=== PATIENT | female | born 1990 | race Caucasian/White ===

== ENCOUNTER 2022-06-03 07:48 | Emergency (ER) | payer BC, SELFPAY ==
[2022-06-03 07:55] VITALS: BP 94/60; PULSE 76; RESP 18; TEMP 36.5; O2SAT 100
[2022-06-03 08:17] LABS: Basophils Percent Auto 0.2 % (0.2-1.2); Eosinophils Absolute Auto 0.1 K/mm3 (0-0.3); Eosinophils Percent Auto 0.6 % (0-4.4); Hematocrit 39.3 % (37.0-47.0); Hemoglobin 13.6 g/dL (12.0-15.0); Immature Granulocyte Absolute 0.03 K/mm3 (0.00-0.031); Immature Granulocyte Percent A 0.3 % (0-0.5); Lymphocytes Absolute Auto 1.53 K/mm3 (0.9-3.2); Lymphocytes Percent Auto 17.5 % (18.3-44.2); Mean Corpuscular HGB Conc 34.6 g/dl (32-36); Mean Corpuscular Hemoglobin 30.4 pg (26-34); Mean Corpuscular Volume 87.7 fl (80-100); Mean Platelet Volume 9.9 fl (7.4-10.4); Monocytes Absolute Auto 0.4 K/mm3 (0.1-0.6); Monocytes Percent Auto 4.6 % (2.6-8.5); Neutrophils Absolute Auto 6.7 K/mm3 (1.3-6.7); Neutrophils Percent Auto 76.8 % (45.5-73.1); Platelet Count Result 265 k/mm3 (150-375); Red Blood Count 4.48 M/mm3 (4.2-5.4); Red Cell Distribution Width 13.1 % (11.5-14.5); White Blood Count 8.8 K/mm3 (4.5-10.0)
[2022-06-03 08:26] LABS: Alanine Aminotransferase 17 U/L (6-35); Alkaline Phosphatase 69 U/L (38-126); Anion Gap 7 mmol/L (8-16); Aspartate Amino Transferase 25 U/L (14-36); Bilirubin,Total 0.6 mg/dL (0.2-1.3); Blood Urea Nitrogen 8 mg/dL (7-17); Calcium 8.5 mg/dL (8.4-10.2); Carbon Dioxide 21 mmol/L (22-30); Chloride 104 mmol/L (98-107); Estimated Glomerular Filt Rate > 60; Glucose 121 mg/dL (65-110); Lipase 11 U/L (23-300); Potassium 3.5 mmol/L (3.4-5.0); Sodium 132 mmol/L (137-145)
[2022-06-03 08:33] LABS: Bacteria Urine Trace /hpf; Mucus Urine Rare /lpf; Squamous Epithelial Cell Urine Many /hpf (Few)
[2022-06-03 08:44] LABS: Add Urine Microscopic? YES; Appearance Urine Cloudy (Clear); Bilirubin Urine Negative (Negative); Blood Urine Negative (Negative); Color Urine Yellow (Yellow); Glucose Urine UA Negative (Negative); Ketones Urine 1+ mg/dL (Negative); Leukocyte Esterase Ur Trace LEU/UL (Negative); Nitrate Urine Negative (Negative); Protein Urine Negative (Negative); Specific Grav Ur 1.023 (1.001-1.035); Urobilinogen Urine Negative mg/dL (<2.0)
[2022-06-03] MEDS: FAMOTIDINE 20 MG/2 ML VIAL IV PUSH (08:51)
[2022-06-03] MEDS: ONDANSETRON INJ 4 MG/2 ML VIAL IV PUSH (08:51)
[2022-06-03] MEDS: SODIUM CHLORIDE 0.9% IV 1,000 ML 999 ML IV CONT ×2 (08:51→09:35)
--- NOTE | 2022-06-03 08:54 | ED.NAVMDI ---
HPI - Nausea/Vomiting/Diarrhea General Chief complaint: Nausea/Vomiting/Diarrhea Stated complaint: COVID+ 05/24 N/V 16WKS PREG Time Seen by Provider: 06/03/22 07:58 Source: RN notes reviewed History of Present Illness HPI Narrative: Patient presents emergency room from home for nausea vomiting. Patient has nausea began 2 days ago. States she is had numerous episodes of emesis since been unable to keep anything down. The patient states she is approximately 16 weeks and is followed by [facility] at [facility] states she has had a ultrasound showing a live intrauterine she denies any abdominal pain she denies any vaginal bleeding states that she did have COVID on 05/24/2022 and states she had felt like she recovered from it prior to having these episodes of nausea and vomiting she states she has had no diarrhea Related Data Home Medications Medication Instructions Recorded Confirmed vits 75-iron 28 mg-folic pkg PO 06/03/22 acid 800 mcg-omega3 440 mg oral pack Allergies Allergy/AdvReac Type Severity Reaction Status Date / Time No Known Allergies Allergy Verified 06/03/22 07:59 Review of Systems Review of Systems: Gen.: Denies fevers or chills ENT: Denies congestion Respiratory: Denies shortness of breath or cough CV: Denies chest pain or palpitations GI: see HPI reports Musculoskeletal: Denies back pain or muscle pain Neuro: Denies numbness, tingling, weakness or focal weakness Skin: Denies rash Except as documented, all other systems reviewed and negative [facility] Past Medical History Medical History (Updated 06/03/22 @ 11:35 by José Marquez DO) Patient denies significant medical history Social History Social History (Updated 06/03/22 @ 08:55 by José Marquez DO) Smoking status: Never smoker Exam Narrative: APPEARANCE: No acute distress, nontoxic, resting in bed EYES: EOMI HEENT: Normocephalic, atraumatic, OMM RESPIRATORY: No respiratory distress Clear to auscultation bilaterally with no rhonchi wheezing or rales. CARDIOVASCULAR: Regular rate and rhythm without murmurs rubs or gallops. ABDOMINAL: Soft, nontender, nondistended, no rebound or guarding MUSCULOSKELETAl: Moves all extremities. No clubbing, cyanosis or edema. NEURO: Awake and alert. Following commands, speech normal, no focal deficits SKIN:: Warm, dry. No rashes lesions or abrasions PSYCHIATRIC: Normal affect/mood, Course Course Emergency Course: Patient states he is feeling much better at this time able to eat and drink in ED with no emesis Discussed with patient results of workup and diagnosis. Discussed need for follow-up with primary care, proper use of medication, and reasons to return to the emergency department. Patient understands and agrees to current treatment plan Vital Signs Vital signs: Vital Signs Temperature 97.7 F 06/03/22 07:55 Pulse Rate 76 06/03/22 07:55 Respiratory Rate 18 06/03/22 07:55 Blood Pressure 94/60 L 06/03/22 07:55 Pulse Oximetry 100 06/03/22 07:55 Temperature 97.7 F 06/03/22 07:55 Pulse Rate 76 06/03/22 07:55 Respiratory Rate 18 06/03/22 07:55 Blood Pressure 94/60 L 06/03/22 07:55 Pulse Oximetry 100 06/03/22 07:55 MDM - Nausea/Vomiting/Diarrhea Lab Data Result diagrams: 06/03/22 08:09 06/03/22 08:09 Labs: Lab Results 06/03/22 06/03/22 06/03/22 Range/Units 08:09 08:09 08:15 WBC 8.8 (4.5-10.0) K/mm3 RBC 4.48 (4.2-5.4) M/mm3 Hgb 13.6 (12.0-15.0) g/dL Hct 39.3 (37.0-47.0) % MCV 87.7 (80-100) fl MCH 30.4 (26-34) pg MCHC 34.6 (32-36) g/dl RDW 13.1 (11.5-14.5) % Plt Count 265 (150-375) k/mm3 MPV 9.9 (7.4-10.4) fl Immature Gran % (Auto) 0.3 (0-0.5) % Neut % (Auto) 76.8 H (45.5-73.1) % Lymph % (Auto) 17.5 L (18.3-44.2) % [place] % (Auto) 4.6 (2.6-8.5) % Eos % (Auto) 0.6 (0-4.4) % Baso % (Auto
[2022-06-03 11:33] VITALS: BP 112/73; PULSE 76; RESP 18; O2SAT 98
[2022-06-03] MEDS: CEPHALEXIN 500 MG CAPSULE PO (11:38)
== END 2022-06-03 12:00 | disposition home or self-care (01) ==
PROVIDERS: Emergency Provider Emergency Medicine
DX: O21.0 Mild hyperemesis gravidarum (principal); Z3A.16 16 weeks gestation of pregnancy; O23.42 Unspecified infection of urinary tract in pregnancy, second trimester; N39.0 Urinary tract infection, site not specified
CPT/HCPCS: 36415; 80053; 81001; 83690; 85025; 96361; 96374; 96375; 99284; A9270; J2405; J7030

== ENCOUNTER 2022-06-13 18:26 | Emergency (ER) | payer BC, SELFPAY ==
[2022-06-13 18:50] VITALS: BP 113/57; PULSE 83; RESP 14; TEMP 36.6; O2SAT 100
[2022-06-13 19:30] LABS: Add Urine Microscopic? NO; Appearance Urine Clear (Clear); Bilirubin Urine Negative (Negative); Blood Urine Negative (Negative); Color Urine Yellow (Yellow); Glucose Urine UA Negative (Negative); Ketones Urine Negative (Negative); Leukocyte Esterase Ur Negative LEU/UL (Negative); Nitrate Urine Negative (Negative); Protein Urine Negative (Negative); Specific Grav Ur 1.018 (1.001-1.035); Urobilinogen Urine Negative mg/dL (<2.0)
--- NOTE | 2022-06-13 19:53 | ED.FEMALEGU ---
HPI - Female Genitourinary General Chief complaint: Urogenital-Female Stated complaint: UTI? Time Seen by Provider: 06/13/22 19:01 History of Present Illness HPI Narrative: This is a 32-year-old female at approximately 17 weeks , return to the emergency department complaining of dysuria. She states she was seen in the emergency department about a week ago, diagnosed with a UTI, started on antibiotics but is only now having urinary symptoms. Denies flank pain, fevers, abdominal pain, cramping, vaginal bleeding. She states she completed her course of antibiotics. Related Data Home Medications Medication Instructions Recorded Confirmed vits 75-iron 28 mg-folic pkg PO 06/03/22 acid 800 mcg-omega3 440 mg oral pack Allergies Allergy/AdvReac Type Severity Reaction Status Date / Time No Known Allergies Allergy Verified 06/03/22 07:59 Review of Systems Review of Systems: CONSTITUTIONAL: Denies fever, chills, or sweats. EYES: Denies visual changes, redness, or discharge. ENT: Denies rhinorrhea, congestion, sore throat, or otalgia. CARDIOVASCULAR: Denies chest pain, palpitations, or edema. RESPIRATORY: Denies cough or dyspnea. GASTROINTESTINAL: Denies abdominal pain, nausea, vomiting, or diarrhea. GENITOURINARY: dysuria Denies hematuria. Denies vaginal bleeding SKIN: Denies rash or itching. MUSCULOSKELETAL: Denies back pain, joint pain, or myalgia. NEUROLOGIC: Denies headache, numbness, dizziness, or weakness. PSYCHIATRIC: Denies anxiety or depression. [facility] Past Medical History Medical History (Updated 06/14/22 @ 00:00 by Johanna Dacalin) Patient denies significant medical history Social History Social History Smoking status: Never smoker Exam Narrative: GENERAL: Well-appearing, well-nourished, and in no acute distress. CHEST: Clear to auscultation. No respiratory distress. No wheezes rales or rhonchi HEART: Regular rate and rhythm. No murmur heard. Normal peripheral pulses. ABDOMEN: Soft, nontender, nondistended, normal active bowel sounds. No CVA tenderness to palpation EXTREMITIES: Normal range of motion. No edema. SKIN: Warm, dry, no rash. NEURO: No focal deficits. Alert and oriented x3. PSYCH: Normal mood and affect. Course Course Emergency Course: 19:50 -cultures not available from prior UA. Despite normal-appearing UA in the presence of symptoms and the current patient's current will repeat antibiotic regimen with recommendation to follow-up with the patient's OB. Bedside ultrasound was demonstrates normal heart rate approximately 140s. Discussed return emergency precautions including signs/symptoms of pyelonephritis. Patient voiced understanding and is comfortable plan. All questions answered to her satisfaction. Vital Signs Vital signs: Vital Signs Temperature 97.9 F 06/13/22 18:50 Pulse Rate 83 06/13/22 18:50 Respiratory Rate 14 06/13/22 18:50 Blood Pressure 113/57 L 06/13/22 18:50 Pulse Oximetry 100 06/13/22 18:50 Oxygen Delivery Room Air 06/13/22 18:50 Temperature 97.9 F 06/13/22 18:50 Pulse Rate 83 06/13/22 18:50 Respiratory Rate 14 06/13/22 18:50 Blood Pressure 113/57 L 06/13/22 18:50 Pulse Oximetry 100 06/13/22 18:50 Oxygen Delivery Room Air 06/13/22 18:50 MDM - Female Genitourinary Lab Data Labs: Lab Results 06/13/22 Range/Units 19:04 Urine Color Yellow (Yellow) Urine Appearance Clear (Clear) Urine pH 6.0 (5.0-9.0) Ur Specific [place] 1.018 (1.001-1.035) Urine Protein Negative (Negative) mg/dL Urine Glucose (UA) Negative (Negative) mg/dL Urine Ketones Negative (Negative) mg/dL Ur Blood (Man) Negative (Negative) Urine Nitrate Negative (Negative) Urine Bilirubin Negative (Negative) Urine Urobilinogen Negative (<2.0) mg/dL Leukocyte Esterase Rfl Negative (Negative) ZAN/UL Dis
== END 2022-06-13 20:04 | disposition home or self-care (01) ==
PROVIDERS: Nurse Practitioner Family; Emergency Provider Preventive Medicine Aerospace Medicine
DX: O26.892 Other specified pregnancy related conditions, second trimester (principal); Z3A.17 17 weeks gestation of pregnancy
CPT/HCPCS: 81003; 99283

== ENCOUNTER 2023-03-03 11:31 | Inpatient (IN) | payer BC, SELFPAY ==
[2023-03-03] VITALS (15 sets, daily range): BP systolic 107–156; BP diastolic 56–96; PULSE 78–144; RESP 16–24; TEMP 36.2–38.7; O2SAT 92–100; BMI 22.4
--- NOTE | ~2023-03-03 | XR_ITS ---
EXAMINATION: XR abdomen/kub 1V INDICATION: Ureteral stone TECHNIQUE: Supine view of the abdomen is obtained. COMPARISON: CT from today FINDINGS: There is a 3 mm calcification of the right pelvis likely reflecting the right distal ureter al stone described on CT. There is enlargement of the left kidney with areas of decreased perfusion i s seen and the comparison CT. The bowel gas pattern is normal. The visualized lung bases are clear. IMPRESSION: 1. 3 mm right pelvic calcification likely reflecting the distal right ureteral stone seen on CT. 2. Enlarged right kidney with areas of decreased perfusion, consistent with pyelonephritis. Reviewed, dictated and finalized at location B. IMPRESSION: 1. 3 mm right pelvic calcification likely reflecting the distal right ureteral stone seen on CT. 2. Enlarged right kidney with areas of decreased perfusion, consistent with linda lonephritis.
--- NOTE | ~2023-03-03 | XR_ITS ---
EXAMINATION: XR chest 1V portable INDICATION: Leukocytosis, right-sided flank pain TECHNIQUE: Portable AP chest at 1322 hours COMPARISON: None available FINDINGS: The lungs are free of acute opacities. No pleural effusion or pneumothorax. The cardiomedia stinal silhouette is normal. IMPRESSION: 1. No acute cardiopulmonary abnormality. Reviewed, dictated and finalized at location B.
--- NOTE | ~2023-03-03 | CT_ITS ---
EXAMINATION: CT abdomen pelvis w con INDICATION: Vomiting and back pain TECHNIQUE: Computed tomographic images of the abdomen and pelvis were obtained after the administrati on of 100 cc of Omnipaque 350 intravenous contrast. The dose-length product (DLP) was 165.67 mGy-cm. Automated exposure control and iterative reconstruction technique were employed. COMPARISON: None available FINDINGS: Minimal dependent atelectasis is present in the lung bases. The heart size is normal. The l iver, spleen, pancreas, gallbladder, and adrenal glands are normal. The left kidney is unremarkable. There is a 3 mm stone at the right ureterovesicular junction causing moderate right hydroureteronephr osis. The right kidney is enlarged and demonstrates multiple areas of abnormal decreased perfusion in the left kidney. No pathologically enlarged abdominal or pelvic lymph nodes are identified. No free intraperitoneal gas or evidence of bowel obstruction. IMPRESSION: 1. 3 mm stone at the right ureterovesicular junction causing moderate right hydroureteronephrosis. Mu ltiple areas of abnormally decreased perfusion in the right kidney consistent with superimposed pyelo nephritis and possible small renal abscesses. Urologic evaluation is recommended. Reviewed, dictated and finalized at location B. IMPRESSION: 1. 3 mm stone at the right ureterovesicular junction causing moderate right hyd roureteronephrosis. Multiple areas of abnormally decreased perfusion in the rig ht kidney consistent with superimposed pyelonephritis and possible small renal abscesses. Urologic evaluation is recommended.
--- NOTE | ~2023-03-03 | XR_ITS ---
EXAMINATION: XR retrograde pyelo w/stent RT DATE: 03/03/2023 17:17 INDICATION: Right ureteral stone. TECHNIQUE: 92 intraoperative fluoroscopic views of the abdomen and pelvis were obtained. I was not pr esent. Fluoroscopy exposure time was 44 seconds. COMPARISON: CT abdomen and pelvis 03/03/2023 FINDINGS: The right-sided retrograde pyelogram demonstrates mild right hydronephrosis and hydroureter . The final images demonstrate a right internal ureteral stent in expected position. Contrast in the left-sided renal collecting system from the recent CT demonstrates a normal left ureter. IMPRESSION: 1. Mild right hydronephrosis and hydroureter. Right internal ureteral stent in expected position. Reviewed, dictated and finalized at location E.
[2023-03-03 11:49] LABS: Hematocrit 40.8 % (37.0-47.0); Hemoglobin 13.8 g/dL (12.0-15.0); Mean Corpuscular HGB Conc 33.8 g/dl (32-36); Mean Corpuscular Hemoglobin 27.9 pg (26-34); Mean Corpuscular Volume 82.6 fl (80-100); Mean Platelet Volume 10.5 fl (7.4-10.4); Platelet Count Result 184 k/mm3 (150-375); Red Blood Count 4.94 M/mm3 (4.2-5.4); Red Cell Distribution Width 14.9 % (11.5-14.5); White Blood Count 22.9 K/mm3 (4.5-10.0)
[2023-03-03 11:57] LABS: Alanine Aminotransferase 26 U/L (6-35); Albumin Level 3.9 g/dL (3.5-5.1); Alkaline Phosphatase 150 U/L (38-126); Anion Gap 5 mmol/L (8-16); Aspartate Amino Transferase 28 U/L (14-36); Bilirubin,Total 0.7 mg/dL (0.2-1.3); Blood Urea Nitrogen 18 mg/dL (7-17); Calcium 8.6 mg/dL (8.4-10.2); Carbon Dioxide 31 mmol/L (22-30); Chloride 90 mmol/L (98-107); Estimated Glomerular Filt Rate 44; Glucose 125 mg/dL (65-110); Lipase 16 U/L (23-300); Potassium 3.2 mmol/L (3.4-5.0); Sodium 126 mmol/L (137-145)
[2023-03-03 12:49] LABS: Band Neutrophils Percent 22 % (0-6); Lymphocytes Absolute Manual 0.22 K/mm3 (1.1-4.5); Monocytes Absolute Manual 0.91 K/mm3 (0.1-0.90); Monocytes Percent Manual 4 % (3-9); Neutrophils Absolute Manual 21.75 K/mm3 (1.7-7.2); Neutrophils Percent Manual 73 % (46-73); Total Cells Counted 100
[2023-03-03 12:50] LABS: Platelet Estimate Adequate (Adequate)
[2023-03-03 12:50] LABS: Amorphous Sediment Urine Present; Appearance Urine Turbid (Clear); Bacteria Urine None Seen /hpf; Bilirubin Urine Negative (Negative); Blood Urine 3+ (Negative); Color Urine Yellow (Yellow); Glucose Urine UA Negative (Negative); Ketones Urine Negative (Negative); Leukocyte Esterase Ur Negative LEU/UL (Negative); Nitrate Urine Negative (Negative); Protein Urine 3+ mg/dL (Negative); RBC Urine 0-2 /hpf (0-2); Specific Grav Ur 1.018 (1.001-1.035); Squamous Epithelial Cell Urine Many /hpf (Few); pH Urine 5.5 (5.0-9.0)
[2023-03-03 12:52] LABS: Hypochromasia 1+ (NORMAL)
[2023-03-03 12:53] LABS: Burr Cells 1+ (NORMAL); Schistocytes None Seen (NORMAL)
[2023-03-03 12:57] LABS: Add Urine Microscopic? YES
--- NOTE | 2023-03-03 12:59 | ED.NAVMDI ---
HPI - Nausea/Vomiting/Diarrhea General Chief complaint: Nausea/Vomiting/Diarrhea <Liz Bailey PA-C - Last Filed: 03/03/23 19:13> Stated complaint: nausea/vomiting, back pain <Liz Bailey PA-C - Last Filed: 03/03/23 19:13> Time Seen by Provider: 03/03/23 12:09 <Liz Bailey PA-C - Last Filed: 03/03/23 19:13> History of Present Illness HPI Narrative: 32 y/o F without significant medical history reports for evaluation for body aches, vomiting, right flank pain x2 weeks, worsening over the past 5 days. Her last bowel movement was a few days ago and normal. She reports decreased p.o. intake including fluids. Patient reports multiple episodes of emesis with associated nausea. She reports decreased urinary output which she associates secondary to dehydration. She reports body aches all over including achiness in her neck and a generalized headache. She denies vision changes, focal numbness or weakness. She is ambulatory. She denies known fever, dysuria, hematuria, chest pain or shortness of breath, vaginal discharge or concern for STDs, sore throat or congestion, cough, ear pain. She does report generalized abdominal pain which has subsided. <Liz Bailey PA-C - Last Filed: 03/03/23 19:13> Related Data Home medications: Home Medications Medication Instructions Recorded Confirmed alprazolam 0.5 mg tablet 0.5 mg PO TID 03/03/23 03/03/23 <Liz Bailey PA-C - Last Filed: 03/03/23 19:13> Allergies/Adverse reactions: Allergies Allergy/AdvReac Type Severity Reaction Status Date / Time No Known Allergies Allergy Verified 03/03/23 12:32 <CODY Alexandra Last Filed: 03/03/23 19:13> Review of Systems Review of Systems: CONSTITUTIONAL: Denies fever, chills EYES: Denies visual changes, redness, or discharge. ENT: Denies rhinorrhea, congestion, sore throat, or otalgia. CARDIOVASCULAR: Denies chest pain, palpitations, or edema. RESPIRATORY: Denies cough or dyspnea. GASTROINTESTINAL: See HPI GENITOURINARY: Denies dysuria or hematuria. SKIN: Denies rash or itching. MUSCULOSKELETAL: See HPI NEUROLOGIC: See HPI PSYCHIATRIC: Denies anxiety or depression. <Liz Bailey PA-C - Last Filed: 03/03/23 19:13> [facility] Past Medical History Medical History: Medical History Anxiety Single seizure Tobacco use <Liz Bailey PA-C - Last Filed: 03/03/23 19:13> Social History Social History: Social History (Updated 03/03/23 @ 14:39 by Yolanda Rae PA-C) Social History: Surrogate medical decision maker: Katie Sr, mother. Code status: Full code. Years smoked: 14 Smoking status: Current every day smoker Tobacco type: cigarettes and e-cigarettes/vaping Alcohol intake: never Substance use: never Lack of Transportation: No Lack of Food: Never True Current Housing: I Have Housing Concerned About Future Housing: No Difficulty Paying Gas/Electric Bills: No Difficulty Paying for Meds: No Currently Unemployed: No Education: High School Diploma/GED Difficulty w/ Childcare or Family Care: No Additional living arrangements comments: Lives in [place]. Additional occupation/education comments: [employer]. Spiritual care concerns: No <Liz Bailey PA-C - Last Filed: 03/03/23 19:13> Exam Narrative: GENERAL: Young female resting in exam bed, appears uncomfortable. Nontoxic appearing, in no acute distress. HEAD: Normocephalic EYES: PERRLA ENT: Nares clear. Mucous membranes moist. Oropharynx without tonsillar hypertrophy exudate or other lesions. NECK: Supple. No nuchal rigidity. CHEST: No respiratory distress. Clear to auscultation, no adventitious breath sounds. HEART: Regular rate and rhythm. No murmur heard. Normal peripheral pulses. ABDOMEN: Normal active bowel sounds. Abdomen soft with tenderness in the suprapubic region with guarding. Bilateral CVA tenderness, significantly worse
[2023-03-03 13:00] LABS: Lactic Acid Reflex 1.4 mmol/L (0.7-2.0)
[2023-03-03] MEDS: POTASSIUM CHLORIDE 20 MEQ PACKET (FOR LIQUID) 40 MEQ PO (13:24)
[2023-03-03] MEDS: ONDANSETRON INJ 4 MG/2 ML VIAL IV PUSH (13:25)
[2023-03-03] MEDS: MORPHINE SULFATE (*CRX) 4 MG/ML INJ IV PUSH (13:25)
[2023-03-03] MEDS: SODIUM CHLORIDE 0.9% IV 1,000 ML 999 ML IV CONT ×2 (13:26)
[2023-03-03 13:40] LABS: Influenza A QL RT-PCR Negative (Negative); Influenza B QL RT-PCR Negative (Negative); SARS-CoV-2 RNA PCR Negative (Negative)
--- NOTE | 2023-03-03 14:32 | PM.IMHP ---
H&P: HPI History of Present Illness Date/Time: 03/03/23 15:00 Chief Complaint: Nausea, vomiting, back pain. Narrative: This is a 32-year-old female without significant medical history presented to the emergency department via private vehicle from home for evaluation of nausea, vomiting, and back pain. The patient provides the following history. She reports intermittent right flank pain which she describes as aching but occasionally sharp and shooting in nature. The pain does not radiate and she has not noticed any significant aggravating or alleviating factors. She has been taking ibuprofen occasionally but not frequently. Over the past 2 weeks however the last 3 to 5 days she started to feel unwell with nausea and vomiting. She now has headaches and body aches and she feels as though she is getting dehydrated as she has noticed a decreased in urine output. She has not taken her temperature but reports subjective fevers. Last week she had dysuria but that has since resolved. No sinus congestion, sore throat, cough, or diarrhea. She was afebrile on arrival to the emergency department with stable vital signs. Labs were significant for a WBC count of 22.9 (22% bands), sodium 126, potassium 3.2, chloride 90, carbon dioxide 31, BUN 18, creatinine 1.40, lactic acid 1.4. Urine was turbid with 3+ protein, 3+ blood, 11 to 20 WBC, and many squamous cells. She tested negative for influenza and COVID. CT of the abdomen and pelvis showed a 3 mm stone at the right UVJ causing moderate right hydroureteronephrosis and multiple areas of abnormally decreased perfusion the right kidney consistent with superimposed pyelonephritis and possible small renal abscesses. Urology was consulted and they will be taking her to the OR for cystoscopy today. She received a 2 L bolus of fluid in the ED and was started on ceftriaxone and she is being admitted in this setting. At the time my evaluation she has no complaints aside from what is listed above. Review of Systems Review of Systems: Twelve systems were reviewed and are negative except for as per HPI. [facility] Past Medical History Medical History Anxiety Single seizure Tobacco use Social History Social History (Updated 03/03/23 @ 14:39 by Yolanda Rae PA-C) Social History: Surrogate medical decision maker: Katie rS, mother. Code status: Full code. Years smoked: 14 Smoking status: Current every day smoker Tobacco type: cigarettes and e-cigarettes/vaping Alcohol intake: never Substance use: never Lack of Transportation: No Lack of Food: Never True Current Housing: I Have Housing Concerned About Future Housing: No Difficulty Paying Gas/Electric Bills: No Difficulty Paying for Meds: No Currently Unemployed: No Education: High School Diploma/GED Difficulty w/ Childcare or Family Care: No Additional living arrangements comments: Lives in [place]. Additional occupation/education comments: [employer]. Spiritual care concerns: No Meds Home Medications and Allergies Home Medications Medication Instructions Recorded Confirmed Type alprazolam 0.5 mg tablet 0.5 mg PO TID 03/03/23 03/03/23 History vortioxetine 10 mg tablet 10 mg PO DAILY 03/03/23 03/03/23 History (Trintellix) Allergies Allergy/AdvReac Type Severity Reaction Status Date / Time No Known Allergies Allergy Verified 03/03/23 12:32 Vital Signs Vital Signs - 24 hr 03/03/23 11:35 03/03/23 13:11 Temperature 97.2 F L Pulse Rate 78 Respiratory Rate 16 16 Blood Pressure 126/96 H 146/81 H Pulse Oximetry 100 98 Oxygen Delivery Room Air Exam Const: Other: Moderately ill-appearing female lying on her right side in bed. Weight: 47 kg. BMI: 22.4. HENMT: Other: Normocephalic, atraumatic. Nares patent bilaterally. Tacky mucous membranes. Eyes: Other: Pupils are reactive. Extraocular motions intact. Sclerae anicteric. Neck: Other: Supple. R
--- NOTE | 2023-03-03 15:55 | WPDANESEPPF ---
Anes - Initial Pre Proc Eval Procedure: Operation Date: 03/03/23 17:00 Proposed Procedures p Cystoscopy, Right Ureteroscopy with Stone Extraction, Possible Right Retrograde Pyelography, Laser Lithotripsy, Possible Right Stent Replacement - Harshad Hunter MD Date/Time: 03/03/23 15:55 Surgeon: Harshad Hunter MD Pre Op Diagnosis: nausea/vomiting, back pain Patient Data Age: 32 Gender: F Height: 1.45 m Weight: 45 kg Last Vital Signs Temp 38.7 C H 03/03/23 15:00 Pulse 99 03/03/23 15:00 Resp 20 03/03/23 15:00 BP 156/90 H 03/03/23 15:00 Pulse Ox 99 03/03/23 15:00 O2 Del Method Room Air 03/03/23 15:00 Allergies Allergy/AdvReac Type Severity Reaction Status Date / Time No Known Allergies Allergy Verified 03/03/23 12:32 Home Medications Medication Instructions Recorded Confirmed Type alprazolam 0.5 mg tablet 0.5 mg PO TID 03/03/23 03/03/23 History vortioxetine 10 mg tablet 10 mg PO DAILY 03/03/23 03/03/23 History (Trintellix) Laboratory Tests 03/03/23 03/03/23 03/03/23 11:41 11:42 12:18 WBC 22.9 H K/mm3 (4.5-10.0) RBC 4.94 M/mm3 (4.2-5.4) Hgb 13.8 g/dL (12.0-15.0) Hct 40.8 % (37.0-47.0) MCV 82.6 fl (80-100) MCH 27.9 pg (26-34) MCHC 33.8 g/dl (32-36) RDW 14.9 H % (11.5-14.5) Plt Count 184 k/mm3 (150-375) MPV 10.5 H fl (7.4-10.4) Immature Gran % (Auto) Soils Analyst Neut % (Auto) Soils Analyst Lymph % (Auto) Soils Analyst [place] % (Auto) Soils Analyst Eos % (Auto) Soils Analyst Baso % (Auto) Soils Analyst Lymph # (Auto) Soils Analyst [place] # (Auto) Soils Analyst Eos # (Auto) Soils Analyst Baso # (Auto) Soils Analyst Abs Immat Gran (auto) Soils Analyst Absolute Neuts (auto) Soils Analyst Absolute Nucleated RBC Soils Analyst Total Counted 100 Neutrophils % (Manual) 73 % (46-73) Band Neutrophils % 22 H % (0-6) Lymphocytes % (Manual) 1.0 L % (18-44) Monocytes % (Manual) 4 % (3-9) Nucleated RBC % Soils Analyst Abs Neuts (Manual) 21.75 H K/mm3 (1.7-7.2) Abs Lymphs (Manual) 0.22 L K/mm3 (1.1-4.5) Abs Monocytes (Manual) 0.91 H K/mm3 (0.1-0.90) Platelet Estimate Adequate (Adequate) Hypochromasia 1+ (NORMAL) [place] Cells 1+ (NORMAL) Schistocytes None seen (NORMAL) Sodium 126 L mmol/L (137-145) Potassium 3.2 L mmol/L (3.4-5.0) Chloride 90 L mmol/L (98-107) Carbon Dioxide 31 H mmol/L (22-30) Anion Gap 5 L mmol/L (8-16) BUN 18 H D mg/dL (7-17) Creatinine 1.40 H mg/dL (0.7-1.0) Estim Creat Clear Calc Not Reportable Estimated GFR 44 L (59 - ) Glucose 125 H mg/dL (65-110) Lactic Acid Calcium 8.6 mg/dL (8.4-10.2) Magnesium 2.0 mg/dL (1.6-2.3) Total Bilirubin 0.7 mg/dL (0.2-1.3) AST 28 U/L (14-36) ALT 26 U/L (6-35) Alkaline Phosphatase 150 H U/L (38-126) Total Protein 8.0 g/dL (6.3-8.2) Albumin 3.9 g/dL (3.5-5.1) Lipase 16 L U/L (23-300) Urine Color Yellow (Yellow) Urine Appearance Turbid H (Clear) Urine pH 5.5 (5.0-9.0) Ur Specific [place] 1.018 (1.001-1.035) Urine Protein 3+ H mg/dL (Negative) Urine Glucose (UA) Negative mg/dL (Negative) Urine Ketones Negative mg/dL (Negative) Ur Blood (Man) 3+ H (Negative) Urine Nitrate Negative (Negative) Urine Bilirubin Negative (Negative) Urine Urobilinogen 1.0 mg/dL (<2.0) Leukocyte Esterase Rfl Negative ZAN/UL (Negative) Urine RBC 0-2 /hpf (0-2) Urine WBC 11-20 H /hpf
--- NOTE | 2023-03-03 16:10 | WPDURCON ---
Assessment and Plan Assessment and plan (1) Ureterolithiasis: Code(s): N20.1 - Calculus of ureter Status: Acute (2) Right ureteral stone: Code(s): N20.1 - Calculus of ureter Status: Acute Assessment and Plan: Cystoscopy with right ureteral stent placement. If the stone is accessible to simple extraction I will proceed with that as well. Patient is aware the risk of this procedure including, but not limited to, need for additional intervention, postoperative sepsis and need for follow-up with stent removal in the future Urology Consult Note HPI Date Seen: 03/03/23 Requesting Physician: Harshad Hunter MD Primary Care Provider: JEWEL LATHE OPERATOR PHYSICIAN Consult Narrative Narrative: Amy Daley is a 32 year old female, without history of prior urolithiasis, presents to the emergency department with a several-day history of combination of symptoms including nausea vomiting and right flank pain. In the ER imaging demonstrates an obstructing 3 mm right distal ureteral calculus, her urine appears infected and she has leukocytosis. Since presentation she has also developed a fever. Review of Systems Review of Systems: All systems reviewed & are unremarkable except as noted in HPI and below PMFSH Past Medical History Medical History (Updated 03/03/23 @ 15:56 by Roberto Arcos MD) Single seizure Ureterolithiasis Social History Social History (Updated 03/03/23 @ 14:39 by Yolanda Rea PA-C) Social History: Surrogate medical decision maker: Katie Sr, mother. Code status: Full code. Smoking status: Former smoker Additional living arrangements comments: Lives in [place]. Additional occupation/education comments: [employer] Home Medications and Allergies Home Medications Medication Instructions Recorded Confirmed Type alprazolam 0.5 mg tablet 0.5 mg PO TID 03/03/23 03/03/23 History vortioxetine 10 mg tablet 10 mg PO DAILY 03/03/23 03/03/23 History (Trintellix) Allergies Allergy/AdvReac Type Severity Reaction Status Date / Time No Known Allergies Allergy Verified 03/03/23 12:32 Vital Signs Vital Signs - 24 hr 03/03/23 11:35 03/03/23 13:11 03/03/23 14:36 Temperature 97.2 F L Pulse Rate 78 80 Respiratory Rate 16 16 16 Blood Pressure 126/96 H 146/81 H 130/68 Pulse Oximetry 100 98 99 Oxygen Delivery Room Air 03/03/23 15:00 Temperature 101.7 F H Pulse Rate 99 Respiratory Rate 20 Blood Pressure 156/90 H Pulse Oximetry 99 Oxygen Delivery Room Air Exam Const: General: no acute distress Resp: Effort & Inspection: normal respiratory effort GI: Inspection: non-distended GI Palp: No abdominal tenderness and No Guarding due to palpation present (GI) Auscultation: normal bowel sounds Results Labs 03/03/23 11:42 03/03/23 11:42 Labs: Short CBC 03/03/23 Range/Units 11:42 WBC 22.9 H (4.5-10.0) K/mm3 Hgb 13.8 (12.0-15.0) g/dL Hct 40.8 (37.0-47.0) % Plt Count 184 (150-375) k/mm3 BMP 03/03/23 11:42 Sodium 126 L Potassium 3.2 L Chloride 90 L Carbon Dioxide 31 H BUN 18 H D Creatinine 1.40 H Glucose 125 H Calcium 8.6 Liver Function 03/03/23 Range/Units 11:42 Total Bilirubin 0.7 (0.2-1.3) mg/dL AST 28 (14-36) U/L ALT 26 (6-35) U/L Alkaline Phosphatase 150 H (38-126) U/L Albumin 3.9 (3.5-5.1) g/dL Urine 03/03/23 Range/Units 12:18 Urine Color Yellow (Yellow) Urine Appearance Turbid H (Clear) Urine pH 5.5 (5.0-9.0) Ur Specific [place] 1.018 (1.001-1.035) Urine Protein 3+ H (Negative) mg/dL Urine Glucose (UA) Negative (Negative) mg/dL
--- NOTE | 2023-03-03 16:12 | WPDHPUPDATE1 ---
History and Physical Update Update Date/Time: 03/03/23 16:12 History and Physical has been reviewed, including an updated exam of the patient. There are NO changes in the patient's condition. Risks, benefits, and alternatives have been discussed and questions answered. Patient agrees to proceed with procedure.
[2023-03-03] MEDS: LIDOCAINE HCL 2% GEL UROJET 10 ML PKG MUCOUS MEM (16:49)
[2023-03-03] MEDS: LACTATED RINGERS 1,000 ML 30 ML IV CONT ×2 (16:55→17:13)
--- NOTE | 2023-03-03 16:56 | P.OP_ITS ---
Procedure Note - Detailed Date of Procedure 03/03/23 Pre-op Diagnosis Right ureteral stone, right obstructive pyelonephritis Post-op Diagnosis Same Procedure Performed Cystoscopy, right retrograde pyelography, right ureteroscopy with stone extraction right ureteral stent placement Surgeon Harshad Hunter MD Anesthesia General Description of Procedure Patient brought the operative suite she has prepped draped in routine sterile fashion while in dorsal lithotomy position after the uneventful induction of a g eneral LMA anesthetic. Cystoscopy is undertaken with a 19 F rigid cystoscope. Bladder was endoscopically normal as is the bladder neck and urethra. She has a single orthotopic ureteral orifice. Placed a 0.035 in glidewire to the right renal pelvis under fluoroscopy. With placement of the wire there is purulent urine draining from the right ureter. Dilated ureter with an 8F/10F dilator with ease. Right distal ureteroscopy was undertaken with the semi-rigid ureteral scope in her distal ureteral stone was grasped with a disposable basket and easily extracted. Placed a 4.8 F variable length stent with the proximal coil in the renal pelvis and distal coil in the bladder. Scopes wires removed in her bladder was emptied. Drains Yes Pathology Yes Condition Stable Disposition PACU
[2023-03-03] MEDS: fentaNYL CITRATE INJ (*CRX) 100 MCG/2 ML VIAL 25 MCG IV PUSH ×6 (17:22→17:38)
[2023-03-03] MEDS: LORazepam INJ (*CRX) 2 MG/ML VIAL 1 MG IV PUSH (17:59)
[2023-03-03 19:10] LABS: Anion Gap 2 mmol/L (8-16); Blood Urea Nitrogen 14 mg/dL (7-17); Calcium 7.2 mg/dL (8.4-10.2); Carbon Dioxide 24 mmol/L (22-30); Chloride 99 mmol/L (98-107); Estimated Glomerular Filt Rate 52; Glucose 110 mg/dL (65-110); Magnesium 1.5 mg/dL (1.6-2.3); Potassium 3.4 mmol/L (3.4-5.0); Sodium 125 mmol/L (137-145)
--- NOTE | 2023-03-03 19:45 | ADMGEN ---
This patient, Amy Daley, was admitted to [facility] Surg Room 328-01. Patient/family oriented to hospital policies and general routines including ID bracelet, bed and alarms, visiting hours, pain management, procedures, bathroom and other care routines, personal items, smoking policy, room service/diet, and visiting hours. Information on how to activate the Rapid Response Team has been discussed. Patient/Family are encouraged to report perceived risks to care and to ask questions if they do not understand what they are told or what they should do.
[2023-03-03] MEDS: ACETAMINOPHEN 325 MG TABLET 650 MG PO (20:15)
[2023-03-03] MEDS: SODIUM CHLORIDE 0.9% IV 1,000 ML 75 ML IV CONT (21:31)
[2023-03-03] MEDS: MORPHINE SULFATE (*CRX) 4 MG/ML INJ 2 MG IV PUSH (21:32)
[2023-03-03 22:09] LABS: Amphetamine Screen Urine Negative (Negative); Barbiturate Screen Urine Negative (Negative); Benzodiazepines Screen Urine Positive (Negative); Cannabinoid Screen Urine Positive (Negative); Cocaine Screen Urine Negative (Negative); Methadone Screen Urine Negative (Negative); Opiate Screen Urine Negative (Negative); Phencyclidine Screen Urine Negative (Negative)
[2023-03-03] MEDS: MAGNESIUM SULF 2 GM/WATER 50ML 2 GM/50 ML BAG IVPB (22:27)
[2023-03-03] MEDS: ALPRAZolam (*CRX) 0.5 MG TABLET PO (22:27)
[2023-03-03 23:39] LABS: Sodium 131 mmol/L (137-145)
[2023-03-04] VITALS (7 sets, daily range): BP systolic 107–141; BP diastolic 71–94; PULSE 67–114; RESP 13–26; TEMP 36.2–37.8; O2SAT 95–99
[2023-03-04] MEDS: MORPHINE SULFATE (*CRX) 4 MG/ML INJ 2 MG IV PUSH ×5 (06:10→22:43)
[2023-03-04 06:47] LABS: Alanine Aminotransferase 21 U/L (6-35); Albumin Level 2.8 g/dL (3.5-5.1); Alkaline Phosphatase 117 U/L (38-126); Anion Gap 5 mmol/L (8-16); Aspartate Amino Transferase 28 U/L (14-36); Bilirubin,Total 0.4 mg/dL (0.2-1.3); Blood Urea Nitrogen 12 mg/dL (7-17); Calcium 7.2 mg/dL (8.4-10.2); Carbon Dioxide 26 mmol/L (22-30); Chloride 105 mmol/L (98-107); Estimated Glomerular Filt Rate > 60; Glucose 122 mg/dL (65-110); Potassium 3.3 mmol/L (3.4-5.0); Sodium 136 mmol/L (137-145)
[2023-03-04 07:46] LABS: Basophils Percent Auto 0.2 % (0.2-1.2); Hematocrit 31.3 % (37.0-47.0); Hemoglobin 10.6 g/dL (12.0-15.0); Immature Granulocyte Absolute 0.05 K/mm3 (0.00-0.031); Immature Granulocyte Percent A 0.3 % (0-0.5); Immature Platelet Fraction Pct 8.1 % (0.9-11.2); Lymphocytes Percent Auto 2.9 % (18.3-44.2); Mean Corpuscular HGB Conc 33.9 g/dl (32-36); Mean Corpuscular Volume 82.6 fl (80-100); Mean Platelet Volume 11.1 fl (7.4-10.4); Monocytes Absolute Auto 0.6 K/mm3 (0.1-0.6); Monocytes Percent Auto 3.4 % (2.6-8.5); Neutrophils Absolute Auto 15.8 K/mm3 (1.3-6.7); Neutrophils Percent Auto 93.2 % (45.5-73.1); Platelet Count Result 111 k/mm3 (150-375); Red Blood Count 3.79 M/mm3 (4.2-5.4); Red Cell Distribution Width 15.2 % (11.5-14.5)
[2023-03-04] MEDS: ALPRAZolam (*CRX) 0.5 MG TABLET PO ×3 (07:59→16:36)
[2023-03-04] MEDS: NICOTINE (*PBKC) 7 MG PATCH 1 PATCH TRANSDERM (08:01)
[2023-03-04 09:27] LABS: Burr Cells 1+ (NORMAL); Hypochromasia 1+ (NORMAL); Platelet Estimate Decreased (Adequate); Schistocytes None Seen (NORMAL)
--- NOTE | 2023-03-04 09:59 | WPDUROPN2 ---
Progress Note: A&P Assessment and Plan (1) Right ureteral stone: Code(s): N20.1 - Calculus of ureter Status: Acute Assessment and Plan: Stent in place, WBC improved from 22.9 yesterday to 17 today, and Creatinine from 1.40 to 1.00 today. Stone was removed, stent will remain in place for 1-2 weeks, then be removed in office. (2) Pyelonephritis: Code(s): N12 - Tubulo-interstitial nephritis, not specified as acute or chronic Status: Acute Assessment and Plan: Blood cultures are preliminarily growing gram negative bacilli, she is continued on Ceftriaxone and remains afebrile with stable vitals. Continue Ceftriaxone at this time, will tailor to culture sensitivity results. Urine cultures are still pending, blood sensitivity is still pending. (3) Ureterolithiasis: Code(s): N20.1 - Calculus of ureter Status: Acute Subjective Subjective Date/Time Seen: 03/04/23 09:59 Post Op day: 1 Interval history: POD #1 Cystoscopy, right retrograde pyelogram, right ureteroscopy with stone extraction, right stent placement. Patient doing well, denies hematuria, dysuria, she is afebrile and WBC/Creatinine are improved today. SHe has some mild right upper abdominal pain with deep breathing but is otherwise doing well. Review of Systems Cardiovascular: Cardiovascular: Denies chest pain Respiratory: Respiratory: Reports no additional respiratory complaints Gastrointestinal: Gastrointestinal: Reports abdominal pain, Denies nausea and Denies vomiting Genitourinary: Genitourinary: Denies hematuria, Denies nocturia, Denies dysuria, Denies pelvic pain, Denies flank pain, Denies urinary incontinence, Denies urinary hesitancy and Reports urinary urgency Exam Const: General: cooperative and comfortable Resp: Effort & Inspection: normal respiratory effort Cardio: Rate: regular rate GI: GI Palp: Yes Soft to palpation and No Tenderness to palpation present (GI) : General: Yes no CVA tenderness Extrem: Right lower extremity: no edema Left lower extremity: no edema Objective Data Vital Signs Vital Signs: Vital Signs - 24 hr 03/03/23 11:35 03/03/23 13:11 03/03/23 14:36 Temperature 97.2 F L Pulse Rate 78 80 Respiratory Rate 16 16 16 Blood Pressure 126/96 H 146/81 H 130/68 Pulse Oximetry 100 98 99 Oxygen Delivery Room Air Oxygen Flow Rate 03/03/23 15:00 03/03/23 16:55 03/03/23 17:10 Temperature 101.7 F H 100.0 F H 99.3 F Pulse Rate 99 88 83 Respiratory Rate 20 20 20 Blood Pressure 156/90 H 107/56 L 126/64 Pulse Oximetry 99 99 100 Oxygen Delivery Room Air Simple Face Mask Simple Face Mask Oxygen Flow Rate 8 8 03/03/23 17:25 03/03/23 17:40 03/03/23 17:55 Temperature 101.5 F H 100.1 F H Pulse Rate 144 H 115 H 111 H Respiratory Rate 24 H 22 H 22 H Blood Pressure 156/84 H 154/83 H 150/88 H Pulse Oximetry 94 92 96 Oxygen Delivery Nasal Cannula Nasal Cannula Nasal Cannula Oxygen Flow Rate 2 2 2 03/03/23 18:10 03/03/23 18:25 03/03/23 17:00 Temperature 100 F H Pulse Rate 110 H 109 H 120 H Respiratory Rate 18 18 20 Blood Pressure 122/86 153/83 H 132/78 Pulse Oximetry 95 96 96 Oxygen Delivery Room Air Room Air Oxygen Flow Rate 03/03/23 20:15 03/03/23 21:35 03/03/23 21:37 Temperature 99.1 F 98.5 F 99.1 F Pulse Rate 115 H Respiratory Rate 19 Blood Pressure 111/70 Pulse Oximetry 95 Oxygen Delivery Oxygen Flow Rate 03/04/23 05:45 Temperature 97.2 F L Pulse Rate 71 Respiratory Rate 13 Blood Pressure 107/71 Pulse Oximetry 99 Oxygen Delivery Oxygen Flow Rate Intake/Output Intake/Output: Intake & Output 03/01/23 03/02/23 03/03/23 03/04/23 23:59 23:59 23:59 23:59 Intake Total 3000 1200 Output Total 800 Balance 3000 400 Meds/Results Medications: Active Medications Generic Name Dose Route Start Last Admin Trade Name Freq PRN Reason Stop Dose Admin Acetaminophen 650 mg 03/03/23 14:07 03/03/23 20:15
[2023-03-04] MEDS: POTASSIUM CHLORIDE 20 MEQ ER TABLET 40 MEQ PO (11:34)
[2023-03-04] MEDS: ONDANSETRON INJ 4 MG/2 ML VIAL IV PUSH ×2 (11:45→20:31)
[2023-03-04] MEDS: SODIUM CHLORIDE 0.9% IV 1,000 ML 75 ML IV CONT (12:13)
--- NOTE | 2023-03-04 12:46 | WPDPN ---
Progress Note: A&P Assessment and Plan (1) Right ureteral stone: Code(s): N20.1 - Calculus of ureter Status: Acute Assessment and Plan: 03/04/2023 interval history: patient is found to have right uretal stone and was seen by her urologist, stent was placed, patient is also found to have pyelonephritis, bacteremia and small renal abscesses D/W ID pharmacist and started patient on ceftriaxone 2 g q daily, will follow up on blood culture and monitor. (2) Pyelonephritis: Code(s): N12 - Tubulo-interstitial nephritis, not specified as acute or chronic Status: Acute Assessment and Plan: patient is treated with ceftriaxone will follow-up on urine culture (3) Sepsis: Code(s): A41.9 - Sepsis, unspecified organism Status: Acute Assessment and Plan: patient with criteria upon arrival, blood culture is growing Gram-negative bacilli, being treated with ceftriaxone, will follow-up on blood culture and sensitivity further recommendation to follow Subjective Date/time seen: 03/04/23 12:46 Interval history: Nausea, vomiting, back pain. HPI-Narrative: This is a 32-year-old female without significant medical history presented to the emergency department via private vehicle from home for evaluation of nausea, vomiting, and back pain.? The patient provides the following history. She reports intermittent right flank pain which she describes as aching but occasionally sharp and shooting in nature. The pain does not radiate and she has not noticed any significant aggravating or alleviating factors. She has been taking ibuprofen occasionally but not frequently. Over the past 2 weeks however the last 3 to 5 days she started to feel unwell with nausea and vomiting. She now has headaches and body aches and she feels as though she is getting dehydrated as she has noticed a decreased in urine output. She has not taken her temperature but reports subjective fevers. Last week she had dysuria but that has since resolved. No sinus congestion, sore throat, cough, or diarrhea. She was afebrile on arrival to the emergency department with stable vital signs. Labs were significant for a WBC count of 22.9 (22% bands), sodium 126, potassium 3.2, chloride 90, carbon dioxide 31, BUN 18, creatinine 1.40, lactic acid 1.4. Urine was turbid with 3+ protein, 3+ blood, 11 to 20 WBC, and many squamous cells. She tested negative for influenza and COVID. CT of the abdomen and pelvis showed a 3 mm stone at the right UVJ causing moderate right hydroureteronephrosis and multiple areas of abnormally decreased perfusion the right kidney consistent with superimposed pyelonephritis and possible small renal abscesses. Urology was consulted and they will be taking her to the OR for cystoscopy today. She received a 2 L bolus of fluid in the ED and was started on ceftriaxone and she is being admitted in this setting. At the time my evaluation she has no complaints aside from what is listed above. 03/04/2023 interval history: patient is found to have right uretal stone and was seen by her urologist, stent was placed, patient is also found to have pyelonephritis, bacteremia and small renal abscesses D/W ID pharmacist and started patient on ceftriaxone 2 g q daily, will follow up on blood culture and monitor. Exam Narrative: Patient is comfortable, NAD HEENT: eyes are clear and none icteric LUNGS: normal respiratory effort ABD: not distended Lower extremities: no edema SKIN: nonjaundiced Neuro: grossly intact. Const: General: cooperative and comfortable Resp: Effort & Inspection: normal respiratory effort Cardio: Rate: regular rate GI: GI Palp: Yes Soft to palpation and No Tenderness to palpation present (GI) : General: Yes no CVA tenderness Extrem: Right lower extremity: no edema Left lower extremity: no edema Objective Data Vital Signs Vital Signs: Vital Signs - 24 hr 03/03/23 13:11 03/03/23 14:36 03/03/23 15:0
[2023-03-04] MEDS: cefTRIAXone 2 GM/NS 100 ML 2 GM/100 ML BAG IVPB (13:01)
[2023-03-04] MEDS: ACETAMINOPHEN 325 MG TABLET 650 MG PO ×2 (13:04→22:41)
--- NOTE | 2023-03-04 14:56 | WPDANESPN ---
Anes - Prog Note Post-Op Date/Time: 03/04/23 14:56 Cardiovascular status: normal Respiratory status: normal Airway patency: baseline Mental status: baseline Post-Op hydration status: normal Vital Signs: Last Vital Signs Temp 97.2 F L 03/04/23 05:45 Pulse 71 03/04/23 05:45 Resp 13 03/04/23 05:45 BP 107/71 03/04/23 05:45 Pulse Ox 99 03/04/23 05:45 O2 Del Method Room Air 03/03/23 18:25 O2 Flow Rate 2 03/03/23 17:55 Pain Score (VAS): 6-7 but pain med brings down to 0 I/O: Intake & Output 03/03/23 03/04/23 03/04/23 23:59 07:59 15:59 Intake Total 950 1200 1440 Output Total 800 Balance 804 350 2490 Laboratory Tests 03/04/23 07:39 03/04/23 06:23 03/03/23 03/03/23 03/03/23 12:18 18:49 23:21 WBC RBC Hgb Hct MCV MCH MCHC RDW Plt Count MPV Immature Gran % (Auto) Neut % (Auto) Lymph % (Auto) Bosque % (Auto) Eos % (Auto) Baso % (Auto) Lymph # (Auto) Bosque # (Auto) Eos # (Auto) Baso # (Auto) Abs Immat Gran (auto) Absolute Neuts (auto) Absolute Nucleated RBC Nucleated RBC % Platelet Estimate % Immature Plt Fraction Hypochromasia Juan Cells Schistocytes Sodium 125 L 131 L Potassium 3.4 Chloride 99 Carbon Dioxide 24 Anion Gap 2 L BUN 14 Creatinine 1.20 H Estim Creat Clear Calc Not Reportable Estimated GFR 52 L Glucose 110 Calcium 7.2 L Magnesium 1.5 L Total Bilirubin AST ALT Alkaline Phosphatase Total Protein Albumin Urine Opiates Screen Negative Urine Methadone Screen Negative Ur Barbiturates Screen Negative Ur Phencyclidine Scrn Negative Ur Amphetamine Screen Negative U Benzodiazepines Scrn Positive A Urine Cocaine Screen Negative U Cannabinoids Screen Positive A 03/04/23 03/04/23 06:23 07:39 WBC 17.0 H RBC 3.79 L Hgb 10.6 L D Hct 31.3 L MCV 82.6 MCH 28.0 MCHC 33.9 RDW 15.2 H Plt Count 111 L MPV 11.1 H Immature Gran % (Auto) 0.3 Neut % (Auto) 93.2 H Lymph % (Auto) 2.9 L Bosque % (Auto) 3.4 Eos % (Auto) 0.0 Baso % (Auto) 0.2 Lymph # (Auto) 0.50 L Bosque # (Auto) 0.6 Eos # (Auto) 0.0 Baso # (Auto) 0.0 Abs Immat Gran (auto) 0.05 H Absolute Neuts (auto) 15.8 H Absolute Nucleated RBC 0.0 Nucleated RBC % 0.0 Platelet Estimate Decreased % Immature Plt Fraction 8.1 Hypochromasia 1+ Newell Cells 1+ Schistocytes None seen Sodium 136 L Potassium 3.3 L Chloride 105 Carbon Dioxide 26 Anion Gap 5 L BUN 12 Creatinine 1.00 Estim Creat Clear Calc Not Reportable Estimated GFR > 60 Glucose 122 H Calcium 7.2 L Magnesium Total Bilirubin 0.4 AST 28 ALT 21 Alkaline Phosphatase 117 Total Protein 6.0 L Albumin 2.8 L Urine Opiates Screen Urine Methadone Screen Ur Barbiturates Screen Ur Phencyclidine Scrn Ur Amphetamine Screen U Benzodiazepines Scrn Urine Cocaine Screen U Cannabinoids Screen Microbiology 03/03/23 12:39 Blood Blood Culture - Preliminary Gram negative bacilli isolated 03/03/23 12:39 Blood Blood Culture - Preliminary Gram negative bacilli isolated Post-procedural complaints: none Patient Feedback: Patient satisfied with anesthetic care.
[2023-03-05] MEDS: SODIUM CHLORIDE 0.9% IV 1,000 ML 75 ML IV CONT ×2 (03:50→18:04)
[2023-03-05] MEDS: MORPHINE SULFATE (*CRX) 4 MG/ML INJ 2 MG IV PUSH ×2 (03:51→11:06)
[2023-03-05 05:39] VITALS: BP 143/83; PULSE 115; RESP 24; TEMP 38.1; O2SAT 98
[2023-03-05 05:52] VITALS: TEMP 38.1
[2023-03-05] MEDS: ACETAMINOPHEN 325 MG TABLET 650 MG PO (05:52)
[2023-03-05] MEDS: HYDROmorphone HCL INJ (*CRX) 1 MG/ML SYR IV PUSH (06:14)
[2023-03-05 06:42] VITALS: TEMP 37.4
[2023-03-05 06:42] LABS: Hematocrit 38.1 % (37.0-47.0); Hemoglobin 12.4 g/dL (12.0-15.0); Mean Corpuscular HGB Conc 32.5 g/dl (32-36); Mean Corpuscular Hemoglobin 27.6 pg (26-34); Mean Corpuscular Volume 84.7 fl (80-100); Mean Platelet Volume 12.3 fl (7.4-10.4); Platelet Count Result 114 k/mm3 (150-375); Red Cell Distribution Width 15.8 % (11.5-14.5); White Blood Count 10.7 K/mm3 (4.5-10.0)
[2023-03-05 06:46] LABS: Anion Gap 3 mmol/L (8-16); Blood Urea Nitrogen 9 mg/dL (7-17); Calcium 7.6 mg/dL (8.4-10.2); Carbon Dioxide 28 mmol/L (22-30); Chloride 102 mmol/L (98-107); Estimated Glomerular Filt Rate > 60; Glucose 102 mg/dL (65-110); Magnesium 1.9 mg/dL (1.6-2.3); Potassium 3.4 mmol/L (3.4-5.0); Sodium 133 mmol/L (137-145)
[2023-03-05] MEDS: NICOTINE (*PBKC) 7 MG PATCH 1 PATCH TRANSDERM (09:31)
[2023-03-05] MEDS: ALPRAZolam (*CRX) 0.5 MG TABLET PO ×3 (09:32→16:42)
[2023-03-05] MEDS: POTASSIUM CHLORIDE 20 MEQ ER TABLET 40 MEQ PO (09:32)
[2023-03-05] MEDS: cefTRIAXone 2 GM/NS 100 ML 2 GM/100 ML BAG IVPB (11:10)
--- NOTE | 2023-03-05 12:33 | WPDPN ---
Progress Note: A&P Assessment and Plan (1) Right ureteral stone: Code(s): N20.1 - Calculus of ureter Status: Acute Assessment and Plan: 03/05/2023 interval history: patient is found to have right uretal stone and was seen by her urologist, stent was placed, patient is also found to have pyelonephritis, bacteremia and small renal abscesses patient blood culture is growing Gram-negative bacilli, D/W ID pharmacist and started patient on ceftriaxone 2 g q daily, will follow up on blood culture and monitor. Today patient states right flank pain is worsened patient be seen by urologist and further recommendation to follow. (2) Pyelonephritis: Code(s): N12 - Tubulo-interstitial nephritis, not specified as acute or chronic Status: Acute Assessment and Plan: patient is treated with ceftriaxone will follow-up on urine culture (3) Sepsis: Code(s): A41.9 - Sepsis, unspecified organism Status: Acute Assessment and Plan: patient with criteria upon arrival, blood culture is growing Gram-negative bacilli, being treated with ceftriaxone, will follow-up on blood culture and sensitivity further recommendation to follow Subjective Date/time seen: 03/05/23 12:33 Interval history: Nausea, vomiting, back pain. HPI-Narrative: This is a 32-year-old female without significant medical history presented to the emergency department via private vehicle from home for evaluation of nausea, vomiting, and back pain.? The patient provides the following history. She reports intermittent right flank pain which she describes as aching but occasionally sharp and shooting in nature. The pain does not radiate and she has not noticed any significant aggravating or alleviating factors. She has been taking ibuprofen occasionally but not frequently. Over the past 2 weeks however the last 3 to 5 days she started to feel unwell with nausea and vomiting. She now has headaches and body aches and she feels as though she is getting dehydrated as she has noticed a decreased in urine output. She has not taken her temperature but reports subjective fevers. Last week she had dysuria but that has since resolved. No sinus congestion, sore throat, cough, or diarrhea. She was afebrile on arrival to the emergency department with stable vital signs. Labs were significant for a WBC count of 22.9 (22% bands), sodium 126, potassium 3.2, chloride 90, carbon dioxide 31, BUN 18, creatinine 1.40, lactic acid 1.4. Urine was turbid with 3+ protein, 3+ blood, 11 to 20 WBC, and many squamous cells. She tested negative for influenza and COVID. CT of the abdomen and pelvis showed a 3 mm stone at the right UVJ causing moderate right hydroureteronephrosis and multiple areas of abnormally decreased perfusion the right kidney consistent with superimposed pyelonephritis and possible small renal abscesses. Urology was consulted and they will be taking her to the OR for cystoscopy today. She received a 2 L bolus of fluid in the ED and was started on ceftriaxone and she is being admitted in this setting. At the time my evaluation she has no complaints aside from what is listed above. 03/05/2023 interval history: patient is found to have right uretal stone and was seen by her urologist, stent was placed, patient is also found to have pyelonephritis, bacteremia and small renal abscesses patient blood culture is growing Gram-negative bacilli, D/W ID pharmacist and started patient on ceftriaxone 2 g q daily, will follow up on blood culture and monitor. Today patient states right flank pain is worsened patient be seen by urologist and further recommendation to follow. Exam Narrative: Patient is comfortable, NAD HEENT: eyes are clear and none icteric LUNGS: normal respiratory effort ABD: not distended Lower extremities: no edema SKIN: nonjaundiced Neuro: grossly intact. Objective Data Vital Signs Vital Signs: Vital Signs - 24 hr 03/04/23 14:00 02/22
[2023-03-05] MEDS: HYDROmorphone HCL INJ (*CRX) 1 MG/ML SYR 0.5 MG IV PUSH (12:59)
[2023-03-05 13:47] VITALS: BP 149/97; PULSE 85; RESP 20; TEMP 36.6; O2SAT 100
[2023-03-05] MEDS: HYOSCYAMINE SULFATE 0.125 MG TABLET PO ×2 (13:54→21:47)
[2023-03-05] MEDS: HYDROcodone/acetaminophen (*CRX) 5-325 MG TABLET 1 TAB PO ×2 (15:30→20:14)
--- NOTE | 2023-03-05 16:17 | WPDUROPN2 ---
Progress Note: A&P Assessment and Plan (1) Pyelonephritis: Code(s): N12 - Tubulo-interstitial nephritis, not specified as acute or chronic Status: Acute Assessment and Plan: Continue IV antibiotics. Blood cultures are growing Gram Negative Bacilli, no sensitivity reported yet. She continues to run a fever, we will plan for discharge tomorrow on oral antibiotics fo 10 days per cutlure sensitivity if fever free for 24 hours. Her stent will remain in until next week. Start levsin for stent irritation and wean pain meds to hydrocodone as she cannot go home with dilaudid or morphine for pain. (2) Right ureteral stone: Code(s): N20.1 - Calculus of ureter Status: Acute (3) Sepsis: Code(s): A41.9 - Sepsis, unspecified organism Status: Acute Subjective Subjective Date/Time Seen: 03/05/23 16:17 Post Op day: 2 Interval history: POD #2 Cystoscopy, right retrograde pyelogram, right ureteroscopy with stone extraction, right stent placement. Patient doing well, denies hematuria, dysuria, she is febrile and WBC/Creatinine are improved today. She has some increased right upper abdominal pain with deep breathing and activity that is not well controlled and needed PRN Dilaudid, but is otherwise doing well. Review of Systems Cardiovascular: Cardiovascular: Denies chest pain Respiratory: Respiratory: Reports no additional respiratory complaints Gastrointestinal: Gastrointestinal: Reports abdominal pain, Denies nausea and Denies vomiting Genitourinary: Genitourinary: Denies hematuria, Denies dysuria and Reports flank pain Exam Const: General: cooperative and comfortable Resp: Effort & Inspection: normal respiratory effort Cardio: Rate: regular rate GI: GI Palp: Yes Soft to palpation and Yes Tenderness to palpation present (GI) (RUOQ) : General: Yes CVA tenderness on the right Extrem: Right lower extremity: no edema Left lower extremity: no edema Objective Data Vital Signs Vital Signs: Vital Signs - 24 hr 03/04/23 20:34 03/04/23 22:17 03/04/23 22:41 Temperature 99.4 F 100.0 F H 100 F H Pulse Rate 92 114 H Respiratory Rate 16 26 H Blood Pressure 141/94 H 139/91 H Pulse Oximetry 95 97 03/04/23 23:37 03/04/23 23:38 03/05/23 05:39 Temperature 97.7 F 97.7 F 100.6 F H Pulse Rate 115 H Respiratory Rate 16 24 H Blood Pressure 143/83 H Pulse Oximetry 98 03/05/23 05:52 03/05/23 06:42 03/05/23 13:47 Temperature 100.6 F H 99.4 F 97.9 F Pulse Rate 85 Respiratory Rate 20 Blood Pressure 149/97 H Pulse Oximetry 100 Intake/Output Intake/Output: Intake & Output 03/02/23 03/03/23 03/04/23 03/05/23 23:59 23:59 23:59 23:59 Intake Total 3000 4046 1980 Output Total 1100 300 Balance 3000 2946 1680 Meds/Results Medications: Active Medications Generic Name Dose Route Start Last Admin Trade Name Freq PRN Reason Stop Dose Admin Acetaminophen 650 mg 03/03/23 14:07 03/05/23 05:52 Acetaminophen 325 Mg Tablet PO 650 mg Q4H PRN Administration Mild Pain (1-3) or Fever Hydrocodone Bitart/Acetaminophen 1 tab 03/05/23 14:07 03/05/23 15:30 Hydrocodone/Acetaminophen (*Crx) 5-325 Mg Tablet PO 1 tab Q4-6H PRN Administration Pain Rated 4-6 Alprazolam 0.5 mg 03/04/23 09:00 03/05/23 12:20 Alprazolam (*Crx) 0.5 Mg Tablet PO 0.5 mg TID MAIA Administration Hydromorphone HCl 0.5 mg 03/05/23 12:53 03/05/23 12:59 Hydromorphone Hcl Inj (*Crx) 1 Mg/Ml Syr IV PUSH 0.5 mg Q4H PRN Administration Pain Rated 7-10 Hyoscyamine 0.125 mg 03/05/23 13:17 03/05/23 13:54 Hyoscyamine Sulfate 0.125 Mg Tablet PO 0.125 mg Q4H PRN Administration Bladder Spasm Sodium Chloride 1,000 mls @ 75 mls/hr 03/03/23 14:10 03/05/23 03:50 Normal Saline Iv IV CONT 75 mls/hr .[id number] MAIA Administration Ceftriaxone Sodium 2 gm in 100 mls @ 200 mls/hr 03/04/23 13:00 03/05/23 11:40 Rocephin 2 Gm/Ns 100
[2023-03-05 22:00] VITALS: BP 129/83; PULSE 98; RESP 16; TEMP 36.2; O2SAT 98
[2023-03-06] MEDS: HYDROcodone/acetaminophen (*CRX) 5-325 MG TABLET 1 TAB PO ×5 (02:35→21:37)
[2023-03-06] MEDS: HYOSCYAMINE SULFATE 0.125 MG TABLET PO ×5 (03:54→22:54)
[2023-03-06] MEDS: SODIUM CHLORIDE 0.9% IV 1,000 ML 75 ML IV CONT ×3 (05:40→19:53)
[2023-03-06 05:44] VITALS: BP 119/81; PULSE 83; RESP 16; TEMP 36.1; O2SAT 98
[2023-03-06 06:38] LABS: Hematocrit 34.1 % (37.0-47.0); Hemoglobin 11.1 g/dL (12.0-15.0); Immature Platelet Fraction Pct 10.7 % (0.9-11.2); Mean Corpuscular HGB Conc 32.6 g/dl (32-36); Mean Corpuscular Hemoglobin 28.1 pg (26-34); Mean Corpuscular Volume 86.3 fl (80-100); Platelet Count Result 79 k/mm3 (150-375); Red Blood Count 3.95 M/mm3 (4.2-5.4); Red Cell Distribution Width 15.8 % (11.5-14.5); White Blood Count 9.7 K/mm3 (4.5-10.0)
[2023-03-06 06:53] LABS: Anion Gap 6 mmol/L (8-16); Blood Urea Nitrogen 6 mg/dL (7-17); Calcium 7.6 mg/dL (8.4-10.2); Carbon Dioxide 25 mmol/L (22-30); Chloride 105 mmol/L (98-107); Estimated Glomerular Filt Rate > 60; Glucose 90 mg/dL (65-110); Magnesium 1.7 mg/dL (1.6-2.3); Potassium 3.5 mmol/L (3.4-5.0); Sodium 136 mmol/L (137-145)
[2023-03-06] MEDS: NICOTINE (*PBKC) 7 MG PATCH 1 PATCH TRANSDERM (09:12)
[2023-03-06] MEDS: POTASSIUM CHLORIDE 20 MEQ PACKET (FOR LIQUID) 40 MEQ PO (09:12)
[2023-03-06] MEDS: ALPRAZolam (*CRX) 0.5 MG TABLET PO ×3 (09:12→16:53)
--- NOTE | 2023-03-06 09:52 | WPDUROPN2 ---
Progress Note: A&P Assessment and Plan (1) Bacteremia: Code(s): R78.81 - Bacteremia Status: Acute Assessment and Plan: Continue Ceftriaxone per culture sensitivity growing E-Coli on Blood cultures. Hospitalist and [facility] Pharmacy have both consulted on this as well. Patient to stay on IV antibiotics 2-3 more days since she remains febrile intermittently. She will then go home on oral antibiotics appropriate to culture sensitivity per ID pharmacy reccomendation. Appreciate their recommendation on this. (2) Right ureteral stone: Code(s): N20.1 - Calculus of ureter Status: Acute Assessment and Plan: Stent remains in place, contributing to pain, combination of [place] and Levsin is helping, ok to discharge home when stable on both medications. Plan to remove stent next week in the office. Office to call patient and schedule stent removal. Ok to discharge per Urology when stable. Subjective Subjective Date/Time Seen: 03/06/23 09:52 Post Op day: 3 Interval history: POD #3 Cystoscopy, right retrograde pyelogram, right ureteroscopy with stone extraction, right stent placement. Patient doing well, denies hematuria, dysuria, she is febrile and WBC/Creatinine are improved today. She has some increased right upper abdominal pain with deep breathing and activity that is now well controlled with [place]/Levsin. Blood culture is positive growing E-Coli. Review of Systems Cardiovascular: Cardiovascular: Denies chest pain Respiratory: Respiratory: Reports no additional respiratory complaints Gastrointestinal: Gastrointestinal: Reports abdominal pain, Denies nausea and Denies vomiting Genitourinary: Genitourinary: Denies hematuria, Reports flank pain, Denies urinary incontinence, Denies urinary hesitancy and Denies urinary urgency Exam Const: General: cooperative; No comfortable Resp: Effort & Inspection: normal respiratory effort Cardio: Rate: regular rate GI: GI Palp: Yes Soft to palpation and Yes Tenderness to palpation present (GI) (RUQ) : General: Yes CVA tenderness on the right Extrem: Right lower extremity: no edema Left lower extremity: no edema Objective Data Vital Signs Vital Signs: Vital Signs - 24 hr 03/05/23 13:47 03/05/23 22:00 03/06/23 05:44 Temperature 97.9 F 97.1 F L 97.0 F L Pulse Rate 85 98 83 Respiratory Rate 20 16 16 Blood Pressure 149/97 H 129/83 119/81 Pulse Oximetry 100 98 98 Intake/Output Intake/Output: Intake & Output 03/03/23 03/04/23 03/05/23 03/06/23 23:59 23:59 23:59 23:59 Intake Total 3000 4046 3460 3200 Output Total 1100 1200 1200 Balance 3000 2946 2260 2000 Meds/Results Medications: Active Medications Generic Name Dose Route Start Last Admin Trade Name Freq PRN Reason Stop Dose Admin Acetaminophen 650 mg 03/03/23 14:07 03/05/23 05:52 Acetaminophen 325 Mg Tablet PO 650 mg Q4H PRN Administration Mild Pain (1-3) or Fever Hydrocodone Bitart/Acetaminophen 1 tab 03/05/23 14:07 03/06/23 06:47 Hydrocodone/Acetaminophen (*Crx) 5-325 Mg Tablet PO 1 tab Q4-6H PRN Administration Pain Rated 4-6 Alprazolam 0.5 mg 03/04/23 09:00 03/06/23 09:12 Alprazolam (*Crx) 0.5 Mg Tablet PO 0.5 mg TID MAIA Administration Hydromorphone HCl 0.5 mg 03/05/23 12:53 03/05/23 12:59 Hydromorphone Hcl Inj (*Crx) 1 Mg/Ml Syr IV PUSH 0.5 mg Q4H PRN Administration Pain Rated 7-10 Hyoscyamine 0.125 mg 03/05/23 13:17 03/06/23 09:12 Hyoscyamine Sulfate 0.125 Mg Tablet PO 0.125 mg Q4H PRN Administration Bladder Spasm Sodium Chloride 1,000 mls @ 75 mls/hr 03/03/23 14:10 03/06/23 09:13 Normal Saline Iv IV CONT 75 mls/hr .[id number] MAIA Administration Ceftriaxone Sodium 2 gm in 100 mls @ 200 mls/hr 03/04/23 13:00 03/05/23 11:40 Rocephin 2 Gm/Ns 100 Ml IVPB Infused DAILY@1200 MAIA Infusion Miscellaneous Information 1 each 03/03/23 00:01 Nonformulary Drug (Vortioxetine [Tri
[2023-03-06] MEDS: cefTRIAXone 2 GM/NS 100 ML 2 GM/100 ML BAG IVPB (12:32)
[2023-03-06 14:00] VITALS: BP 116/84; PULSE 94; RESP 16; TEMP 36.6; O2SAT 98
--- NOTE | 2023-03-06 14:08 | WPDPN ---
Progress Note: A&P Assessment and Plan (1) Right ureteral stone: Code(s): N20.1 - Calculus of ureter Status: Acute Assessment and Plan: 03/06/2023 interval history: patient is found to have right uretal stone and was seen by her urologist, stent was placed, patient is also found to have pyelonephritis, bacteremia and small renal abscesses patient blood culture is growing E coli,chua sensitive D/W ID pharmacist and started patient on ceftriaxone 2 g q daily, Today patient states right flank pain is improving patient will be seen by urologist and further recommendation to follow. (2) Pyelonephritis: Code(s): N12 - Tubulo-interstitial nephritis, not specified as acute or chronic Status: Acute Assessment and Plan: patient is treated with ceftriaxone will follow-up on urine culture (3) Sepsis: Code(s): A41.9 - Sepsis, unspecified organism Status: Acute Assessment and Plan: patient with criteria upon arrival, blood culture is growing Gram-negative bacilli, being treated with ceftriaxone, will follow-up on blood culture and sensitivity further recommendation to follow Subjective Date/time seen: 03/06/23 14:08 Interval history: 03/06/2023 interval history: patient is found to have right uretal stone and was seen by her urologist, stent was placed, patient is also found to have pyelonephritis, bacteremia and small renal abscesses patient blood culture is growing E coli,chua sensitive D/W ID pharmacist and started patient on ceftriaxone 2 g q daily, Today patient states right flank pain is improving patient will be seen by urologist and further recommendation to follow. Review of Systems Review of Systems: Twelve systems were reviewed and are negative except for as per HPI. Exam Narrative: Patient is comfortable, NAD HEENT: eyes are clear and none icteric LUNGS: normal respiratory effort ABD: not distended Lower extremities: no edema SKIN: nonjaundiced Neuro: grossly intact. Objective Data Vital Signs Vital Signs: Vital Signs - 24 hr 03/05/23 22:00 03/06/23 05:44 Temperature 97.1 F L 97.0 F L Pulse Rate 98 83 Respiratory Rate 16 16 Blood Pressure 129/83 119/81 Pulse Oximetry 98 98 Intake/Output Intake/Output: Intake & Output 03/03/23 03/04/23 03/05/23 03/06/23 23:59 23:59 23:59 23:59 Intake Total 3000 4046 3460 3540 Output Total 1100 1200 1200 Balance 3000 2946 2260 2340 Meds/Results Medications: Active Medications Generic Name Dose Route Start Last Admin Trade Name Freq PRN Reason Stop Dose Admin Acetaminophen 650 mg 03/03/23 14:07 03/05/23 05:52 Acetaminophen 325 Mg Tablet PO 650 mg Q4H PRN Administration Mild Pain (1-3) or Fever Hydrocodone Bitart/Acetaminophen 1 tab 03/05/23 14:07 03/06/23 12:41 Hydrocodone/Acetaminophen (*Crx) 5-325 Mg Tablet PO 1 tab Q4-6H PRN Administration Pain Rated 4-6 Alprazolam 0.5 mg 03/04/23 09:00 03/06/23 12:33 Alprazolam (*Crx) 0.5 Mg Tablet PO 0.5 mg TID MAIA Administration Hydromorphone HCl 0.5 mg 03/05/23 12:53 03/05/23 12:59 Hydromorphone Hcl Inj (*Crx) 1 Mg/Ml Syr IV PUSH 0.5 mg Q4H PRN Administration Pain Rated 7-10 Hyoscyamine 0.125 mg 03/05/23 13:17 03/06/23 13:33 Hyoscyamine Sulfate 0.125 Mg Tablet PO 0.125 mg Q4H PRN Administration Bladder Spasm Sodium Chloride 1,000 mls @ 75 mls/hr 03/03/23 14:10 03/06/23 09:13 Normal Saline Iv IV CONT 75 mls/hr .[id number] MAIA Administration Ceftriaxone Sodium 2 gm in 100 mls @ 200 mls/hr 03/04/23 13:00 03/06/23 13:02 Rocephin 2 Gm/Ns 100 Ml IVPB Infused DAILY@1200 MAIA Infusion Miscellaneous Information 1 each 03/03/23 00:01 Nonformulary Drug (Vortioxetine [Trintellix] 10 Mg Tablet)Can Patient Use From Home? XX 04/02/23 00:00 CLARIFY MAIA Nicotine 1 patch 03/03/23 21:45 03/06/23 09:12 Nicotine (*Pbkc) 7 Mg Patch TRANSDERM 1 patch
[2023-03-06 20:20] VITALS: BP 119/93; PULSE 95; RESP 16; TEMP 36.6; O2SAT 98
[2023-03-07] MEDS: HYDROcodone/acetaminophen (*CRX) 5-325 MG TABLET 1 TAB PO ×4 (03:14→15:53)
[2023-03-07] MEDS: HYOSCYAMINE SULFATE 0.125 MG TABLET PO ×4 (04:25→15:53)
[2023-03-07 04:53] VITALS: BP 119/95; PULSE 99; RESP 16; TEMP 36.2; O2SAT 100
[2023-03-07] MEDS: SODIUM CHLORIDE 0.9% IV 1,000 ML 75 ML IV CONT (06:24)
[2023-03-07 06:33] LABS: Hematocrit 33.9 % (37.0-47.0); Hemoglobin 10.9 g/dL (12.0-15.0); Mean Corpuscular HGB Conc 32.2 g/dl (32-36); Mean Corpuscular Hemoglobin 27.5 pg (26-34); Mean Corpuscular Volume 85.4 fl (80-100); Platelet Count Result 114 k/mm3 (150-375); Red Blood Count 3.97 M/mm3 (4.2-5.4); Red Cell Distribution Width 15.6 % (11.5-14.5); White Blood Count 7.6 K/mm3 (4.5-10.0)
[2023-03-07 06:46] LABS: Anion Gap -1 mmol/L (8-16); Blood Urea Nitrogen 7 mg/dL (7-17); Carbon Dioxide 32 mmol/L (22-30); Chloride 101 mmol/L (98-107); Estimated Glomerular Filt Rate > 60; Glucose 87 mg/dL (65-110); Magnesium 1.6 mg/dL (1.6-2.3); Potassium 3.5 mmol/L (3.4-5.0); Sodium 132 mmol/L (137-145)
[2023-03-07] MEDS: NICOTINE (*PBKC) 7 MG PATCH 1 PATCH TRANSDERM (08:20)
[2023-03-07] MEDS: ALPRAZolam (*CRX) 0.5 MG TABLET PO ×2 (08:21→12:41)
[2023-03-07] MEDS: DOCUSATE SODIUM 100 MG CAPSULE PO (09:11)
[2023-03-07] MEDS: polyethylene glycoL 3350 17 GM POWD.PACK PO (09:11)
[2023-03-07] MEDS: cefTRIAXone 2 GM/NS 100 ML 2 GM/100 ML BAG IVPB (12:41)
--- NOTE | 2023-03-07 14:09 | PM.DS ---
DS: Admitting Diagnosis Discharge Date 03/07/2023 Admitting Diagnosis Nausea, vomiting, back pain. DS: Discharge Diagnosis Discharge Diagnosis (1) Right ureteral stone: Code(s): N20.1 - Calculus of ureter Status: Acute Assessment and Plan: 03/06/2023 interval history: patient is found to have right uretal stone and was seen by her urologist, stent was placed, patient is also found to have pyelonephritis, bacteremia and small renal abscesses patient blood culture is growing E coli,chua sensitive D/W ID pharmacist and started patient on ceftriaxone 2 g q daily, Today patient states right flank pain is improving patient will be seen by urologist and further recommendation to follow. (2) Pyelonephritis: Code(s): N12 - Tubulo-interstitial nephritis, not specified as acute or chronic Status: Acute Assessment and Plan: patient is treated with ceftriaxone will follow-up on urine culture (3) Sepsis: Code(s): A41.9 - Sepsis, unspecified organism Status: Acute Assessment and Plan: patient with criteria upon arrival, blood culture is growing Gram-negative bacilli, being treated with ceftriaxone, will follow-up on blood culture and sensitivity further recommendation to follow DS: Summary Hospital Course Reason for hospitalization: Nausea, vomiting, back pain. Narrative: This is a 32-year-old female without significant medical history presented to the emergency department via private vehicle from home for evaluation of nausea, vomiting, and back pain.? The patient provides the following history. She reports intermittent right flank pain which she describes as aching but occasionally sharp and shooting in nature. The pain does not radiate and she has not noticed any significant aggravating or alleviating factors. She has been taking ibuprofen occasionally but not frequently. Over the past 2 weeks however the last 3 to 5 days she started to feel unwell with nausea and vomiting. She now has headaches and body aches and she feels as though she is getting dehydrated as she has noticed a decreased in urine output. She has not taken her temperature but reports subjective fevers. Last week she had dysuria but that has since resolved. No sinus congestion, sore throat, cough, or diarrhea. She was afebrile on arrival to the emergency department with stable vital signs. Labs were significant for a WBC count of 22.9 (22% bands), sodium 126, potassium 3.2, chloride 90, carbon dioxide 31, BUN 18, creatinine 1.40, lactic acid 1.4. Urine was turbid with 3+ protein, 3+ blood, 11 to 20 WBC, and many squamous cells. She tested negative for influenza and COVID. CT of the abdomen and pelvis showed a 3 mm stone at the right UVJ causing moderate right hydroureteronephrosis and multiple areas of abnormally decreased perfusion the right kidney consistent with superimposed pyelonephritis and possible small renal abscesses. Urology was consulted and they will be taking her to the OR for cystoscopy today. She received a 2 L bolus of fluid in the ED and was started on ceftriaxone and she is being admitted in this setting. At the time my evaluation she has no complaints aside from what is listed above. Hospital Course: ?patient is found to have right uretal stone and was seen by her urologist, stent was placed, patient is also found to have pyelonephritis, bacteremia and small renal abscesses patient blood culture is growing E coli,chua sensitive D/W ID pharmacist and started patient on ceftriaxone 2 g q daily,? Today patient states right flank pain is improving patient will be seen by urologist and further recommendation to follow. Today patient states symptoms have improved seen by urologist, stent in place, and can be discharged home today, will discharge the patient oral antibiotics and will follow-up with urologist as outpatient. Time Spent with Patient Time attestation: Total time spent providing and/or coordinating discharge servic
== END 2023-03-07 16:05 | disposition home or self-care (01) | DRG 710 ==
LOC: ANHED 14:08 → ANHSURGERY 14:34 → ANH3MEDSUR 18:34
PROVIDERS: Physician Assistant; Preventive Medicine Aerospace Medicine; Urology; Admitting Provider Hospitalist; Emergency Provider Physician Assistant; Visit Provider Family Medicine
PROC: 0TC68ZZ Extirpation of Matter from Right Ureter, Via Natural or Artificial Opening Endoscopic (ICD-10-PCS; CPT 52352; principal; 2023-03-03 17:00)
DX: A41.51 Sepsis due to Escherichia coli [E. coli] (principal); N17.9 Acute kidney failure, unspecified; E87.1 Hypo-osmolality and hyponatremia; E83.42 Hypomagnesemia; E87.6 Hypokalemia; N13.6 Pyonephrosis; E86.0 Dehydration; F41.9 Anxiety disorder, unspecified; F17.210 Nicotine dependence, cigarettes, uncomplicated; Z20.822 Contact with and (suspected) exposure to COVID-19
CPT/HCPCS: 36415; 71045; 74018; 74177; 74420; 80048; 80053; 80307; 81001; 81025; 82365; 83605; 83690; 83735; 84295; 85025; 85027; 85055; 87040; 87077; 87086; 87186; 87636; 88300; 96361; 96365; 96374; 96375; 96376; 99285; A9270; C1769; C2617; G0378; G0379; J0696; J1100; J1170; J1885; J2060; J2250; J2270; J2405; J2704; J3010; J3475; J7030; J7120; Q9966; Q9967

== ENCOUNTER 2023-04-18 19:14 | Emergency (ER) | payer BC, SELFPAY ==
[2023-04-18 19:20] VITALS: BP 130/81; PULSE 72; RESP 17; TEMP 36.2; O2SAT 100
[2023-04-18 19:53] LABS: Appearance Urine Cloudy (Clear); Bacteria Urine None Seen /hpf; Bilirubin Urine Negative (Negative); Blood Urine Negative (Negative); Color Urine Yellow (Yellow); Glucose Urine UA Negative (Negative); Ketones Urine Negative (Negative); Leukocyte Esterase Ur 2+ LEU/UL (Negative); Nitrate Urine Negative (Negative); Non Pathogenic Casts 0-2; Protein Urine Trace mg/dL (Negative); RBC Urine 0-2 /hpf (0-2); Specific Grav Ur 1.024 (1.001-1.035); Squamous Epithelial Cell Urine Few /hpf (Few); Urobilinogen Urine 0.2 mg/dL (<2.0); WBC Urine >100 /hpf; pH Urine 5.5 (5.0-9.0)
[2023-04-18 20:18] LABS: Add Urine Microscopic? YES
--- NOTE | 2023-04-18 21:03 | PC.NURSE ---
patient came to desk and stated that she would come back at less busy time. patient alert and oriented x4. ambulatory with steady gait.
== END 2023-04-18 21:03 | disposition left against medical advice (07) ==
LOC: ANHED 21:20
PROVIDERS: Emergency Provider Emergency Medicine
DX: R30.0 Dysuria (principal)
CPT/HCPCS: 81001; 81025; 87086; 99199

== ENCOUNTER 2023-04-19 09:07 | Emergency (ER) | payer BC, SELFPAY ==
--- NOTE | ~2023-04-19 | XR_ITS ---
EXAMINATION: XR chest 2V DATE: 04/19/2023 10:29 INDICATION: Right posterior rib and flank pain TECHNIQUE: PA and lateral views of the chest were obtained. COMPARISON: Chest radiograph dated 03/03/2023 FINDINGS: The lungs are hyperexpanded but clear with no focal airspace opacities, pulmonary edema, pleural effu meliton or pneumothorax. The cardiomediastinal silhouette is normal. Mild S-shaped thoracolumbar scolios is. Additional excreted contrast in the bilateral renal collecting systems from the immediately prior contrast-enhanced CT. IMPRESSION: 1. No acute cardiopulmonary disease. Reviewed, dictated and finalized at location A.
--- NOTE | ~2023-04-19 | CT_ITS ---
EXAMINATION: CT abdomen pelvis w con DATE: 04/19/2023 10:30 INDICATION: Right flank pain TECHNIQUE: Computed tomography (CT) of the abdomen and pelvis was performed without intravenous contr ast. Automated exposure control and iterative reconstruction technique were employed. The dose-length product was 152.37 mGy-cm. COMPARISON: None FINDINGS: Small region of new tree-in-bud opacities in the posterior basilar segment of the left lower lobe con sistent with endobronchial spread of disease and likely infectious or inflammatory in etiology. Heart size is normal. No pericardial or pleural effusion. Mild focal hepatic steatosis at the ligamentum t eres. Gallbladder, spleen, pancreas, bilateral adrenal glands and left kidney are normal. There is en largement of the right kidney with multiple segmental regions of decreased renal parenchymal enhancem ent consistent with hydronephrosis. Bladder, anteverted uterus and bilateral adnexa are unremarkable with 1.8 cm dominant left ovarian follicle. Bowels are unremarkable. The appendix is not visualized. No pericecal inflammatory change to suggest acute appendicitis. No free intraperitoneal gas or fluid. No pathologically enlarged abdominal or pelvic lymphadenopathy. Mild lumbar levo scoliosis with mild spondylosis. Recent-appearing nondisplaced posterior right 11th rib fracture which is new since the prior study. IMPRESSION: 1. Segmental regions of right renal parenchymal hypoenhancement consistent with pyelonephritis. Is un clear to what extent this represents ongoing pyelonephritis versus subacute sequela of the previously seen pyelonephritis. 2. Small region of tree-in-bud opacity in the left lower lobe consistent with endobronchial spread of disease most likely infectious or inflammatory in etiology. Reviewed, dictated and finalized at location A. IMPRESSION: 1. Segmental regions of right renal parenchymal hypoenhancement consistent with pyelonephritis. Is unclear to what extent this represents ongoing pyelonephrit is versus subacute sequela of the previously seen pyelonephritis. 2. Small region of tree-in-bud opacity in the left lower lobe consistent with e ndobronchial spread of disease most likely infectious or inflammatory in etiolo gy.
[2023-04-19 09:12] VITALS: BP 119/85; PULSE 80; RESP 16; TEMP 36.5; O2SAT 100
[2023-04-19 09:32] VITALS: O2SAT 100
[2023-04-19 09:33] VITALS: BP 132/83; O2SAT 100
[2023-04-19 09:34] VITALS: O2SAT 98
[2023-04-19 09:52] LABS: Basophils Absolute Auto 0.1 K/mm3 (0.0-0.1); Basophils Percent Auto 0.5 % (0.2-1.2); Eosinophils Absolute Auto 0.2 K/mm3 (0-0.3); Eosinophils Percent Auto 1.6 % (0-4.4); Hematocrit 39.5 % (37.0-47.0); Hemoglobin 12.6 g/dL (12.0-15.0); Immature Granulocyte Absolute 0.02 K/mm3 (0.00-0.031); Immature Granulocyte Percent A 0.2 % (0-0.5); Lymphocytes Absolute Auto 2.27 K/mm3 (0.9-3.2); Lymphocytes Percent Auto 23.2 % (18.3-44.2); Mean Corpuscular HGB Conc 31.9 g/dl (32-36); Mean Corpuscular Hemoglobin 27.5 pg (26-34); Mean Corpuscular Volume 86.1 fl (80-100); Monocytes Absolute Auto 0.3 K/mm3 (0.1-0.6); Monocytes Percent Auto 3.4 % (2.6-8.5); Neutrophils Percent Auto 71.1 % (45.5-73.1); Platelet Count Result 409 k/mm3 (150-375); Red Blood Count 4.59 M/mm3 (4.2-5.4); Red Cell Distribution Width 14.6 % (11.5-14.5); White Blood Count 9.8 K/mm3 (4.5-10.0)
[2023-04-19 09:54] LABS: Alanine Aminotransferase 14 U/L (6-35); Albumin Level 4.5 g/dL (3.5-5.1); Alkaline Phosphatase 100 U/L (38-126); Anion Gap 8 mmol/L (8-16); Aspartate Amino Transferase 23 U/L (14-36); Bilirubin,Total 0.6 mg/dL (0.2-1.3); Blood Urea Nitrogen 10 mg/dL (7-17); Calcium 9.1 mg/dL (8.4-10.2); Carbon Dioxide 26 mmol/L (22-30); Chloride 104 mmol/L (98-107); Estimated Glomerular Filt Rate > 60; Glucose 97 mg/dL (65-110); Sodium 138 mmol/L (137-145)
--- NOTE | 2023-04-19 09:56 | ED.FEMALEGU ---
HPI - Female Genitourinary General Chief complaint: Urogenital-Female Stated complaint: kidney pain Time Seen by Provider: 04/19/23 09:39 History of Present Illness HPI Narrative: 32-year-old female who was recently discharged on 03/07/2023 after being admitted for 4 days for urosepsis and pyelonephritis complicated by a 3 mm stone in the right UVJ and bacteremia with blood cultures testing positive for E. coli reports today for evaluation of right flank pain x4 days. Patient reports the pain is in the same area that it was last time before she got sick. She is reporting the pain is in her right mid to upper back and is worse with movement and deep inspiration. She reports feeling a popping sensation, which she states she felt when she had a stone and pyelonephritis last month. States she started having dysuria yesterday and is also reporting a intermittent cough over the past few days that is improving. Denies fever, dyspnea, nausea or vomiting, body aches or chills, hematuria, hemoptysis, abdominal pain, chest pain. Denies recent trauma or injury. LMP was approximately 10 days ago. Last bowel movement today and normal. The patient reported to the emergency department yesterday for symptoms but prior to be seen. A urine sample was collected at that time and shows 2+ leuk esterase and greater than 100 WBCs. Related Data Home Medications Medication Instructions Recorded Confirmed alprazolam 0.5 mg tablet 0.5 mg PO TID 03/03/23 03/03/23 Allergies Allergy/AdvReac Type Severity Reaction Status Date / Time No Known Allergies Allergy Verified 04/19/23 09:34 Review of Systems Review of Systems: CONSTITUTIONAL: Denies fever, chills EYES: Denies visual changes, redness, or discharge. ENT: Denies rhinorrhea, congestion, sore throat, or otalgia. CARDIOVASCULAR: Denies chest pain, palpitations, or edema. RESPIRATORY: See HPI GASTROINTESTINAL: See HPI GENITOURINARY: Denies dysuria or hematuria. SKIN: Denies rash or itching. MUSCULOSKELETAL: See HPI NEUROLOGIC: Denies headache, numbness, dizziness, or weakness. PSYCHIATRIC: Denies anxiety or depression. [facility] Past Medical History Medical History Anxiety Single seizure Tobacco use Social History Social History Social History: Surrogate medical decision maker: Katie Sr, mother. Code status: Full code. Years smoked: 14 Smoking status: Current every day smoker Tobacco type: cigarettes and e-cigarettes/vaping Alcohol intake: never Substance use: never Lack of Transportation: No Lack of Food: Never True Current Housing: I Have Housing Concerned About Future Housing: No Difficulty Paying Gas/Electric Bills: No Difficulty Paying for Meds: No Currently Unemployed: No Education: High School Diploma/GED Difficulty w/ Childcare or Family Care: No Additional living arrangements comments: Lives in [place]. Additional occupation/education comments: [employer]. Spiritual care concerns: No Exam Narrative: GENERAL: Well-appearing, in no acute distress. Patient resting comfortably in exam bed. She is pleasant and conversational. HEAD: Normocephalic EYES: PERRLA ENT: Nares clear. Mucous membranes moist. Oropharynx without tonsillar hypertrophy exudate or other lesions. NECK: Supple. CHEST: No respiratory distress. Clear to auscultation, no adventitious breath sounds. HEART: Regular rate and rhythm. No murmur heard. Normal peripheral pulses. ABDOMEN: Soft, nontender, normal active bowel sounds. Tenderness over the right flank and extending up into the right posterior ribs. No crepitus, step-offs or deformities of ribs. EXTREMITIES: Normal range of motion. No edema. SKIN: Warm, dry, no rash. NEURO: No focal deficits. Alert and oriented x3. PSYCH: Normal mood and affect. Course Vital Signs Vital signs: Vital Signs Temperature 97.7 F 04/19/23 09:12 Pulse
[2023-04-19] MEDS: MORPHINE SULFATE (*CRX) 4 MG/ML INJ IV PUSH (10:13)
[2023-04-19] MEDS: SODIUM CHLORIDE 0.9% IV 1,000 ML 999 ML IV CONT (10:13)
[2023-04-19 10:17] LABS: Lipase 39 U/L (23-300)
[2023-04-19] MEDS: ONDANSETRON INJ 4 MG/2 ML VIAL IV PUSH (10:19)
[2023-04-19 10:32] VITALS: BP 123/88; O2SAT 99
[2023-04-19 10:52] VITALS: O2SAT 100
[2023-04-19] MEDS: levoFLOXacin 750 MG TABLET PO (11:22)
== END 2023-04-19 11:25 | disposition home or self-care (01) ==
PROVIDERS: Emergency Medicine; Emergency Provider Physician Assistant
DX: N12 Tubulo-interstitial nephritis, not specified as acute or chronic (principal); F17.210 Nicotine dependence, cigarettes, uncomplicated
CPT/HCPCS: 36415; 71046; 74177; 80053; 81025; 83690; 85025; 96361; 96374; 96375; 99284; A9270; J2270; J2405; J7030; Q9967

== ENCOUNTER 2023-10-12 10:36 | Emergency (ER) | payer BC, SELFPAY ==
[2023-10-12] VITALS (8 sets, daily range): BP systolic 116–124; BP diastolic 68–86; PULSE 68–78; RESP 14–20; TEMP 36.4–36.7; O2SAT 100
--- NOTE | ~2023-10-12 | CT_ITS ---
EXAMINATION: CT abdomen pelvis wo con DATE: 10/12/2023 13:14 INDICATION: Right upper quadrant and right flank pain. TECHNIQUE: Computed tomography (CT) of the abdomen and pelvis was performed without intravenous contr ast. Automated exposure control and iterative reconstruction technique were employed. The dose-length product was 153.25 mGy-cm. COMPARISON: 04/19/2023 FINDINGS: Lung bases are clear. Heart size normal. No pericardial or pleural effusion. Liver, gallbladder, sple en, pancreas, bilateral adrenal glands and kidneys are normal. Large amount stool scattered throughou t the colon. Correlate for constipation. No dilated bowel to suggest obstruction. The appendix is not visualized. No pericecal inflammatory change to suggest acute appendicitis. There is however some rojas btle nonspecific haziness to the omental fat on the anterior margin of the ascending colon which coul d be seen with omental infarct. Bladder, anteverted uterus are unremarkable. No free intraperitoneal gas or fluid. No pathologically enlarged abdominal or pelvic lymphadenopathy. Lumbar levoscoliosis wi th mild spondylosis. Sacralized L5 segment. Healing still ununited posterior right 11th rib fracture. IMPRESSION: 1. Nonspecific subtle haziness to the omental fat along the ascending colon which could be seen with omental infarct. No other evident acute intra-abdominal/pelvic process. 2. Large amount of colonic stool which could be seen with constipation. Reviewed, dictated and finalized at location A. [employer] IMPRESSION: 1. Nonspecific subtle haziness to the omental fat along the ascending colon whi ch could be seen with omental infarct. No other evident acute intra-abdominal/p elvic process. 2. Large amount of colonic stool which could be seen with constipation.
[2023-10-12 12:03] LABS: Basophils Percent Auto 0.6 % (0.2-1.2); Eosinophils Absolute Auto 0.1 K/mm3 (0-0.3); Eosinophils Percent Auto 1.1 % (0-4.4); Hematocrit 41.1 % (37.0-47.0); Hemoglobin 13.1 g/dL (12.0-15.0); Immature Granulocyte Absolute 0.01 K/mm3 (0.00-0.031); Immature Granulocyte Percent A 0.1 % (0-0.5); Lymphocytes Absolute Auto 1.36 K/mm3 (0.9-3.2); Lymphocytes Percent Auto 18.8 % (18.3-44.2); Mean Corpuscular HGB Conc 31.9 g/dl (32-36); Mean Corpuscular Hemoglobin 27.8 pg (26-34); Mean Corpuscular Volume 87.1 fl (80-100); Mean Platelet Volume 10.1 fl (7.4-10.4); Monocytes Absolute Auto 0.2 K/mm3 (0.1-0.6); Monocytes Percent Auto 3.2 % (2.6-8.5); Neutrophils Absolute Auto 5.5 K/mm3 (1.3-6.7); Neutrophils Percent Auto 76.2 % (45.5-73.1); Platelet Count Result 370 k/mm3 (150-375); Red Blood Count 4.72 M/mm3 (4.2-5.4); Red Cell Distribution Width 13.9 % (11.5-14.5); White Blood Count 7.2 K/mm3 (4.5-10.0)
[2023-10-12 12:09] LABS: Appearance Urine Cloudy (Clear); Bacteria Urine Rare /hpf; Bilirubin Urine Negative (Negative); Blood Urine Negative (Negative); Color Urine Yellow (Yellow); Glucose Urine UA Negative (Negative); Ketones Urine Negative (Negative); Leukocyte Esterase Ur Negative LEU/UL (Negative); Nitrate Urine Negative (Negative); Non Pathogenic Casts 0-2; Protein Urine Negative (Negative); RBC Urine 0-2 /hpf (0-2); Specific Grav Ur 1.013 (1.001-1.035); Squamous Epithelial Cell Urine Occasional /hpf (Few); Urobilinogen Urine 0.2 mg/dL (<2.0); WBC Urine 0-5 /hpf
[2023-10-12 12:12] LABS: Alanine Aminotransferase 14 U/L (6-35); Albumin Level 4.4 g/dL (3.5-5.1); Alkaline Phosphatase 91 U/L (38-126); Anion Gap 6 mmol/L (8-16); Aspartate Amino Transferase 25 U/L (14-36); Bilirubin,Total 0.5 mg/dL (0.2-1.3); Blood Urea Nitrogen 9 mg/dL (7-17); Calcium 9.3 mg/dL (8.4-10.2); Carbon Dioxide 30 mmol/L (22-30); Chloride 103 mmol/L (98-107); Estimated Glomerular Filt Rate > 60; Glucose 99 mg/dL (65-110); Lipase 62 U/L (23-300); Sodium 139 mmol/L (137-145)
[2023-10-12 12:30] LABS: Add Urine Microscopic? YES
--- NOTE | 2023-10-12 13:12 | ED.ABDPAIN ---
HPI - Abdominal Pain General Chief Complaint: Abdominal Pain Stated Complaint: RUQ/rib pain Time Seen by Provider: 10/12/23 11:45 Source: patient Mode of arrival: ambulatory Limitations: no limitations History of Present Illness HPI narrative: Patient is a 33 y/o female who presents to the ED with c/o RUQ abdominal pain. Patient reports the pain began on Friday, improved slightly yesterday, but then became worse again today, prompting her presentation. She has not tried anything for pain. Reports pain radiates around to her right lateral abdomen/flank region. Reports history of kidney stones and states pain feels somewhat similar. She denies any nausea, vomiting, fevers, diarrhea, constipation, dysuria, hematuria, urinary frequency. Related Data Home Medications Medication Instructions Recorded Confirmed alprazolam 0.5 mg tablet 0.5 mg PO TID 03/03/23 03/03/23 Allergies Allergy/AdvReac Type Severity Reaction Status Date / Time No Known Allergies Allergy Verified 04/19/23 09:34 Review of Systems Review of Systems: CONSTITUTIONAL: Denies fever, chills, or sweats. CARDIOVASCULAR: Denies chest pain RESPIRATORY: Denies dyspnea. GASTROINTESTINAL: See HPI. GENITOURINARY: Denies dysuria or hematuria. MUSCULOSKELETAL: See HPI All systems reviewed & are unremarkable except as noted in HPI and below PMFSH Past Medical History Medical History Anxiety Single seizure Tobacco use Social History Social History Social History: Surrogate medical decision maker: Katie Sr, mother. Code status: Full code. Years smoked: 14 Smoking status: Current every day smoker Tobacco type: cigarettes and e-cigarettes/vaping Alcohol intake: never Substance use: never Lack of Transportation: No Lack of Food: Never True Current Housing: I Have Housing Concerned About Future Housing: No Difficulty Paying Gas/Electric Bills: No Difficulty Paying for Meds: No Currently Unemployed: No Education: High School Diploma/GED Difficulty w/ Childcare or Family Care: No Additional living arrangements comments: Lives in [place]. Additional occupation/education comments: [employer]. Spiritual care concerns: No Exam Narrative: GENERAL: Well appearing, thin/short stature, non-toxic, in no acute distress. HEAD: Normocephalic, atraumatic. RESPIRATORY: Airway patent, respirations nonlabored. Clear to auscultation bilaterally, no rales, rhonchi, wheezing. CARDIOVASCULAR: Regular rate and rhythm ABDOMINAL: Soft, mild tenderness in right upper quadrant, right lateral abdomen/lower ribcage. Nondistended. Normoactive BS. Minimal CVA tenderness to percussion on the left side. MUSCULOSKELETAL: Moves all extremities. No gross deformities. No midline spinal tenderness. SKIN: Warm, dry, normal color. NEURO: A&O X3. Speech clear. Cranial nerves II-XII grossly intact. Steady gait. No ataxic movements. PSYCHIATRIC: Appropriate mood and affect. Normal interaction. Course Vital Signs Vital signs: Vital Signs Temperature 98.0 F 10/12/23 10:46 Pulse Rate 70 10/12/23 10:46 Respiratory Rate 20 10/12/23 10:46 Blood Pressure 122/76 10/12/23 10:46 Pulse Oximetry 100 10/12/23 10:46 Oxygen Delivery Room Air 10/12/23 10:46 Temperature 97.8 F 10/12/23 15:41 Pulse Rate 74 10/12/23 15:41 Respiratory Rate 16 10/12/23 15:41 Blood Pressure 116/80 10/12/23 15:41 Pulse Oximetry 100 10/12/23 15:41 Oxygen Delivery Room Air 10/12/23 10:46 MDM - Abdominal Pain MDM Narrative Medical decision making narrative: Patient presented to ED with right flank and upper quadrant abdominal pain, worsening today. Hx stones. Vital signs are stable upon arrival. Patient in no acute distress. Noted to be talking and texting back and forth with her significant other on the phone in the ED room. Laboratory studies are unremark
[2023-10-12] MEDS: ACETAMINOPHEN 325 MG TABLET 650 MG PO (13:21)
[2023-10-12 14:49] LABS: Lactic Acid Reflex 0.7 mmol/L (0.7-2.0)
[2023-10-12] MEDS: KETOROLAC 30 MG/ML VIAL (*BKC) IV PUSH (15:44)
== END 2023-10-12 16:05 | disposition home or self-care (01) ==
PROVIDERS: Emergency Provider Physician Assistant
DX: K55.069 Acute infarction of intestine, part and extent unspecified (principal); K59.00 Constipation, unspecified; F17.210 Nicotine dependence, cigarettes, uncomplicated; F17.290 Nicotine dependence, other tobacco product, uncomplicated
CPT/HCPCS: 36415; 74176; 80053; 81001; 81025; 83605; 83690; 85025; 96374; 99284; A9270; J1885

== ENCOUNTER 2024-04-30 17:13 | Emergency (ER) | payer BC, SELFPAY ==
--- NOTE | 2024-04-30 17:24 | PC.NURSE ---
Pt comes to the desk and says she will come back at a later time
== END 2024-04-30 17:40 | disposition left against medical advice (07) ==
LOC: ANHED 17:38
DX: Z53.21 Procedure and treatment not carried out due to patient leaving prior to being seen by health care provider (principal)
CPT/HCPCS: 99199

== ENCOUNTER 2024-05-02 16:50 | Emergency (ER) | payer BC, SELFPAY ==
[2024-05-02 17:10] VITALS: BP 134/78; PULSE 80; RESP 18; TEMP 36.6; O2SAT 100
[2024-05-02] MEDS: TETANUS,DIPHTHERIA,AC PERTUSSIS ADULT (0.5 ML) BOOSTRIX IM (20:00)
[2024-05-02] MEDS: cefTRIAXone 1 GM VIAL 0.5 GM IM (20:13)
[2024-05-02] MEDS: metroNIDAZOLE 500 MG TABLET PO (20:13)
[2024-05-02] MEDS: DOXYCYCLINE HYCLATE 100 MG TABLET PO (20:13)
[2024-05-02 20:30] VITALS: BP 125/70; PULSE 82; RESP 16; O2SAT 100
[2024-05-02 21:20] LABS: Trichomonas Vag PCR NOT DETECTED (NOT DETECTE)
[2024-05-02 21:42] LABS: Chlamydia trachomatis NOT DETECTED (NOT DETECTE); Neisseria gonorrhoeae PCR NOT DETECTED (NOT DETECTE)
--- NOTE | 2024-05-02 22:18 | ED.FEMALEGU ---
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 No significant pain or nausea vomiting or fevers or chills. She did also slice a piece of skin on her right pinky several hours ago Related Data Home Medications Medication Instructions Recorded Confirmed alprazolam 0.5 mg tablet 0.5 mg PO TID 03/03/23 03/03/23 Allergies Allergy/AdvReac Type Severity Reaction Status Date / Time No Known Allergies Allergy Verified 04/19/23 09:34 Review of Systems Review of Systems: All systems reviewed & are unremarkable except as noted in HPI and below PMFSH Past Medical History Medical History Anxiety Single seizure Tobacco use Social History Social History Social History: Surrogate medical decision maker: Katie Sr, mother. Code status: Full code. Years smoked: 14 Smoking status: Current every day smoker Tobacco type: cigarettes and e-cigarettes/vaping Alcohol intake: never Substance use: never Lack of Transportation: No Lack of Food: Never True Current Housing: I Have Housing Concerned About Future Housing: No Difficulty Paying Gas/Electric Bills: No Difficulty Paying for Meds: No Currently Unemployed: No Education: High School Diploma/GED Difficulty w/ Childcare or Family Care: No Additional living arrangements comments: Lives in [place]. Additional occupation/education comments: [employer]. Spiritual care concerns: No Exam Narrative: EXAMINATION OF ORGAN SYSTEMS/BODY AREAS: Constitutional: Vital signs per nursing GENERAL:[No acute distress, non-toxic appearing.] HEAD: Normal with no signs of head trauma. EYES: EOMI, conjunctiva normal ENT: Hearing grossly intact LUNGS: Nonlabored breathing. HEART: [Regular rate and rhythm] ABD: [Soft], [nontender to palpation] : with nurse channel marketing specialist in room. There is a greenish yellowish discharge, no significant tenderness EXT: Normal range of motion SKIN: Skin avulsion right pinky NEURO: [Alert and oriented x 3. No gross focal sensory or strength deficits.] PSYCH: Normal affect Course Vital Signs Vital signs: Vital Signs Temperature 97.8 F 05/02/24 17:10 Pulse Rate 80 05/02/24 17:10 Respiratory Rate 18 05/02/24 17:10 Blood Pressure 134/78 05/02/24 17:10 Pulse Oximetry 100 05/02/24 17:10 Oxygen Delivery Room Air 05/02/24 17:10 Temperature 97.8 F 05/02/24 17:10 Pulse Rate 82 05/02/24 20:30 Respiratory Rate 16 05/02/24 20:30 Blood Pressure 125/70 05/02/24 20:30 Pulse Oximetry 100 05/02/24 20:30 Oxygen Delivery Room Air 05/02/24 17:10 Procedures Laceration Laceration 1: Date: 05/02/24 Site: hand Side (If applicable): right Size (cm): 2 Description: flap and clean Depth: simple, single layer Pre-repair: wound explored, irrigated and deep structures intact ====== Skin Level ====== Skin layer closed with: dermabond ====== Subcutaneous Layer ====== ====== Muscle Layer ====== ====== Tendon Layer ====== MDM - Female Genitourinary MDM Narrative Medical decision making narrative: Patient presents with right pinky cut and foul-smelling vaginal discharge. I did perform pelvic exam with nurse channel marketing specialist and patient consent, did not note any foreign body, there is a discharge which I have swabbed and sent labs, it since patient has a new partner prior to this I did offer STD testing and treatment and she is agreeable, instructions for safe sex and need for partner to be tested and treated discussed. There is a very thin top
== END 2024-05-02 20:49 | disposition home or self-care (01) ==
PROVIDERS: Emergency Provider Emergency Medicine
DX: S61.216A Laceration without foreign body of right little finger without damage to nail, initial encounter (principal); N89.8 Other specified noninflammatory disorders of vagina; F17.210 Nicotine dependence, cigarettes, uncomplicated; F41.9 Anxiety disorder, unspecified; W26.9XXA Contact with unspecified sharp object(s), initial encounter; Z23 Encounter for immunization
CPT/HCPCS: 12001; 87491; 87591; 87661; 90471; 90715; 96372; 99284; A9270; J0696

== ENCOUNTER 2025-01-25 03:52 | Inpatient (IN) | payer OTHER, SELFPAY ==
[2025-01-25] VITALS (110 sets, daily range): BP systolic 106–140; BP diastolic 47–103; PULSE 63–112; RESP 14–20; TEMP 36.4–37.2; O2SAT 77–100; BMI 25.1
--- OUTSIDE RECORDS SUMMARY | 2025-01-25 04:38 | XMS_ITS | Clinical Summary ---
Author Organization [facility] Address [address] [place] [address] Phone Care Team Providers Care Rejogger Name Role Phone Unavailable Primary Care Provider Unavailabl e Social History Tobacco Use Types Packs/Day Years Used Date Smoking Tobacco: Never Assessed Comments Unknown Sex and Gender Information Value Date Recorded Sex Assigned at Not on file Legal Sex Female 11:44 PM CDT Gender Identity Not on file Sexual Orientation Not on file Plan of Treatment Not on file Insurance [place] [id number]
--- NOTE | 2025-01-25 04:57 | LDADM ---
This patient, Amy Daley, was admitted to Labor/Delivery/Recovery 107 on 01/25/25 at 03:52. Plans for labor, pain management and were discussed with patient. Patient/family oriented to hospital policies and general routines including ID bracelet, bed and alarms, visiting hours, pain management, procedures, bathroom and other care routines, personal items, smoking policy, room service/diet and guest tray routines, infant security routines, and visiting hours. Patient/Family are encouraged to report perceived risks to care and to ask questions if they do not understand what they are told or what they should do. See OBIX for further documentation.
[2025-01-25 05:03] LABS: Basophils Percent Auto 0.2 % (0.2-1.2); Eosinophils Absolute Auto 0.2 K/mm3 (0-0.3); Eosinophils Percent Auto 1.8 % (0-4.4); Hematocrit 32.2 % (37.0-47.0); Hemoglobin 10.3 g/dL (12.0-15.0); Immature Granulocyte Absolute 0.04 K/mm3 (0.00-0.031); Immature Granulocyte Percent A 0.5 % (0-0.5); Lymphocytes Absolute Auto 1.92 K/mm3 (0.9-3.2); Lymphocytes Percent Auto 23.3 % (18.3-44.2); Mean Corpuscular Hemoglobin 26.4 pg (26-34); Mean Corpuscular Volume 82.6 fl (80-100); Mean Platelet Volume 10.9 fl (7.4-10.4); Monocytes Absolute Auto 0.4 K/mm3 (0.1-0.6); Monocytes Percent Auto 4.9 % (2.6-8.5); Neutrophils Absolute Auto 5.7 K/mm3 (1.3-6.7); Neutrophils Percent Auto 69.3 % (45.5-73.1); Platelet Count Result 216 k/mm3 (150-375); Red Cell Distribution Width 12.8 % (11.5-14.5); White Blood Count 8.2 K/mm3 (4.5-10.0)
[2025-01-25] MEDS: LACTATED RINGERS 1,000 ML 125 ML IV CONT ×2 (05:11→08:11)
[2025-01-25] MEDS: AMPICILLIN 2 GM/NS 100 ML 2 GM/100 ML BAG IVPB (05:15)
[2025-01-25 06:03] LABS: Hepatitis B Surface Antigen Negative (Negative)
[2025-01-25 06:04] LABS: HIV 1/2 Ab P24 Ag Result Negative (Negative)
[2025-01-25 06:51] LABS: OBXCEM ROM Plus Positive (Negative)
--- NOTE | 2025-01-25 06:58 | PM.IMHP ---
H&P: HPI History of Present Illness Date/Time: 01/25/25 06:58 Chief Complaint: leakage of fluid Narrative: Amy is a 34yo @ 36.4wks who presented overnight with leakage of fluid. She reports irregular contractions. She denies vaginal bleeding. She reports good movement. She was seen yesterday and GBS collected, so still pending. Her is complicated by: - Maternal osteogenesis imperfecta; s/p MFM consult - tobacco abuse - h/o kidney stones; UCx neg - h/o anxiety/depression; not on meds - Desires salpingectomy, [place] sterilization form signed 11/30/24 - Noncompliant with care (has had 5 visits all , 3rd tri labs incomplete) - Rubella non-immune Review of Systems Constitutional: Constitutional: Denies chills, Denies fever(s) and Denies headache(s) Eyes: Eyes: Denies change in vision ENT: Denies headache(s) Cardiovascular: Cardiovascular: Denies chest pain and Denies dyspnea Respiratory: Respiratory: Denies dyspnea Genitourinary: Genitourinary: Denies abnormal vaginal bleeding and Denies vaginal discharge Neurologic: Denies headache(s) Psychiatric: Psychiatric: Denies anxiety and Denies depression [facility] Past Medical History Medical History Osteogenesis imperfecta H/O nephrolithotomy with removal of calculi Anxiety Tobacco use Single seizure Family History Family History Mother Heart disease Hypertension Grandparent Heart disease Hypertension Social History Social History Years smoked: 14 Smoking status: Former smoker Second hand tobacco smoke exposure: No Alcohol intake: never Substance use: never Do You Feel Safe in your Home?: Yes Lack of Transportation: No Lack of Food: Never True Current Housing: I Have Housing Concerned About Future Housing: No Difficulty Paying Gas/Electric Bills: No Difficulty Paying for Meds: No Currently Unemployed: No Education: High School Diploma/GED Difficulty w/ Childcare or Family Care: No Living arrangements: with family Additional living arrangements comments: Lives in [place]. Occupation/Education: occupation Additional occupation/education comments: [employer] Gender identity (if verbalized by the patient): Female Spiritual care concerns: No Meds Home Medications and Allergies Home Medications ?Medication ?Instructions ?Recorded ?Confirmed ?Type vits no.126-ferrous fum 1 tablet PO DAILY 08/26/24 01/25/25 History 28 mg iron-folic acid 800 mcg tablet (Classic ) calcium carbonate (Tums) 200 mg PO BID 01/24/25 01/25/25 History Allergies Allergy/AdvReac Type Severity Reaction Status Date / Time No Known Allergies Allergy Verified 01/25/25 06:54 Vital Signs Vital Signs - 24 hr 01/25/25 04:37 01/25/25 04:42 01/25/25 04:57 Temperature Pulse Rate Blood Pressure Pulse Oximetry 95 95 Oxygen Delivery Room Air 01/25/25 05:04 01/25/25 05:05 01/25/25 05:10 Temperature 97.5 F L Pulse Rate 105 H Blood Pressure 115/80 Pulse Oximetry 100 98 Oxygen Delivery 01/25/25 05:15 01/25/25 05:20 01/25/25 05:25 Temperature Pulse Rate Blood Pressure Pulse Oximetry 97 98 98 Oxygen Delivery 01/25/25 05:28 01/25/25 05:31 01/25/25 05:33 Temperature Pulse Rate 71 Blood Pressure 133/103 H Pulse Oximetry 99 100 Oxygen Delivery 01/25/25 05:38 01/25/25 05:43 01/25/25 05:48 Temperature Pulse Rate Blood Pressure Pulse Oximetry 97 99 98 Oxygen Delivery 01/25/25 05:53 01/25/25 05:58 01/25/25 06:01 Temperature Pulse Rate 93 Blood Pressure 129/93 H Pulse Oximetry 100 100 Oxygen Delivery 01/25/25 06:03 01/25/25 06:08 01/25/25 06:10 Temperature 98 F Pulse Rate Blood Pressure Pulse Oximetry 99 100 Oxygen Delivery 01/25/25 06:13 01/25/25 06:18 01/25/25 06:23 Temperature Pulse Rate Blood Pressure Pulse Oximetry 97 100 100 Oxygen Delivery 01/25/25 06:28 01/25/25 06:31 01/25/25 06:33 Temperature Pulse Rate 78 Blood Pressure 128/89 Pulse Oximetry 100 99 Oxygen Delivery 01/25/25 06:38 01/25/25 06:43 01/25/25 06:55 Temperature Pulse Rate Blood Pressure Pulse Oximetry 100 100 100 Oxygen Delivery Exam Const: General: cooperative, healthy appearing, comfortable and no acute distress Orientation/consciousness: patient oriented x3 Resp: Effort & Inspection: normal respiratory effort Cardio: Rate: regular rate GI: GI Palp: No abdominal tenderness : Other: FHT's: 140's/ mod chay/ + accels/ no decels - cat 1 TOCO: ctxs q4-6min Cervix: 4/80/-2 Membranes: PROM, clear Presentation: cephalic Skin: General skin exam: normal color Neuro: General: patient oriented x3 Extrem: General: normal to inspection Psych: Appearance: grossly normal Affect: normal affect Attitude: cooperative H&P: Results Labs Labs: Short CBC 01/25/25 Range/Units 04:52 WBC 8.2 (4.5-10.0) K/mm3 Hgb 10.3 L (12.0-15.0) g/dL Hct 32.2 L (37.0-47.0) % Plt Count 216 (150-375) k/mm3 Assessment and Plan Assessment and plan (1) PROM (premature rupture of membranes): Qualifiers: PROM onset of labor timing: onset of labor within 24 hours of rupture PROM gestational age: -third trimester Qualified Code(s): O42.013 - premature rupture of membranes, onset of labor within 24 hours of rupture, third trimester Code(s): O42.90 - Premature rupture of membranes, unspecified as to length of time between rupture and onset of labor, unspecified weeks of gestation Status: Acute Plan - Admitted for delivery due to PROM at 36.4wks - GBS unknown, will start ampicillin due to prematurity - Continuous monitoring; currently reassuring - Low dose pitocin as contractions have spaced out - Anesthesia consult for epidural
[2025-01-25] MEDS: OXYTOCIN 30 UNITS/NS 500 ML 30 UNITS/500 ML BAG IV CONT (07:20)
[2025-01-25 07:22] LABS: Rubella IgG Antibody 6.6 IU/ML; Syphilis IgG/IgM Antibody Negative (Negative)
[2025-01-25] MEDS: AMPICILLIN 1 GM/NS 50 ML 1 GM/50 ML BAG IVPB (09:18)
[2025-01-25] MEDS: OXYTOCIN 30 UNITS/NS 500 ML 30 UNITS/500 ML BAG 125 UNITS IV CONT (11:21)
--- NOTE | 2025-01-25 12:18 | PM.OBPRVD ---
OB - Vaginal Delivery Note Procedure Delivery date: 01/25/25 Events: Premature Rupture of Membranes and Other (GBS unknown, limited care) Induction method: None Delivery augmentation: Pitocin Delivery monitor: External FHT and External Uterine Route of delivery: Episiotomy description: None Laceration Description: None Specimen: Yes (placenta) Quantitative Blood Loss (ml): 100 Anesthesia type: Epidural Disposition: Floor Complications: No immediate complications [place] Baby Date of : 01/25/25 Time of : 10:48 Gestational Age by Date: 36 (.4) Infant gender: Female presentation: vertex position: Right Occiput Anterior Placenta delivery description: Expressed Cord Vessel Description: 3 Vessels and Delayed Cord Clamping score one minute: 8 score five minutes: 9 Narrative: Amy rapidly progressed to complete dilation with strong desire to push. She pushed for approximately 1 contraction and delivered the head over intact perineum. No nuchal cord was palpated. She easily delivered the 's shoulders and body without complication. Infant was immediately placed skin to skin and had spontaneous cry. Delayed cord clamping was performed. The umbilical cord was then doubly clamped and cut. A segment of the cord was collected for cord gases. With Pitocin running and gentle downward traction on the cord, the placenta delivered without complication. Bimanual massage was performed and good uterine tone with minimal bleeding was noted. She was examined and no lacerations were identified. Her uterus remained firm with minimal bleeding. Sponge, lap, instrument, and needle counts were correct at the end of the procedure. Mom and baby were left bonding in the birthing suite in stable condition.
[2025-01-25] MEDS: IBUPROFEN 600 MG TABLET PO ×2 (13:05→21:16)
--- NOTE | 2025-01-25 13:30 | OBPPTRN ---
Patient transferred to post room #280 via wheelchair. Support person present. Oriented to unit, room, information board, rooming in, admission packet and security measures. Patient verbalizes understanding.
[2025-01-25] MEDS: ACETAMINOPHEN 325 MG TABLET 650 MG PO ×2 (16:18→21:16)
[2025-01-26 03:16] VITALS: BP 111/79; PULSE 63; RESP 18; TEMP 36.5; O2SAT 99
[2025-01-26 05:34] LABS: Hemoglobin 8.9 g/dL (12.0-15.0); Mean Corpuscular HGB Conc 31.8 g/dl (32-36); Mean Corpuscular Volume 81.9 fl (80-100); Mean Platelet Volume 11.2 fl (7.4-10.4); Platelet Count Result 209 k/mm3 (150-375); Red Blood Count 3.42 M/mm3 (4.2-5.4); Red Cell Distribution Width 12.8 % (11.5-14.5); White Blood Count 11.2 K/mm3 (4.5-10.0)
[2025-01-26] MEDS: ACETAMINOPHEN 325 MG TABLET 650 MG PO ×2 (05:55→14:06)
--- NOTE | 2025-01-26 07:00 | P.PNOB_ITS ---
OB - PN: Subj Subjective Date/time seen: 01/26/25 07:21 Narrative: PPD#1 Amy reports doing well today. 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 Her pain is controlled. She is tolerating regular diet, voiding, passing gas, and ambulating without issues. She is breast and bottle feeding. OB - PN: Obj Data Labs 01/26/25 03:02 Labs: Laboratory Results - last 24 hr 01/25/25 01/25/25 04:23 04:52 WBC 8.2 RBC 3.90 L Hgb 10.3 L Hct 32.2 L MCV 82.6 MCH 26.4 MCHC 32.0 RDW 12.8 Plt Count 216 MPV 10.9 H Immature Gran % (Auto) 0.5 Neut % (Auto) 69.3 Lymph % (Auto) 23.3 [place] % (Auto) 4.9 Eos % (Auto) 1.8 Baso % (Auto) 0.2 Lymph # (Auto) 1.92 [place] # (Auto) 0.4 Eos # (Auto) 0.2 Baso # (Auto) 0.0 Abs Immat Gran (auto) 0.04 H Absolute Neuts (auto) 5.7 Absolute Nucleated RBC 0.000 Nucleated RBC % 0.0 Membranes Rupture Rom plus positive Syphilis IgG/IgM Ab Negative Hep Bs Antigen Negative HIV 1&2 Ab/P24 Ag 4thGn Negative Rubella IgG Antibody 6.6 L Blood Type O Positive Antibody Screen Negative OB - PN A/P Assessment and Plan (1) delivery: Code(s): O60.10X0 - labor with delivery, unspecified trimester, not applicable or unspecified Status: Acute Plan day: 1 Plan: routine care Comments: - PO pain meds - Regular diet - Ambulation and hydration encouraged - Continue putting baby to breast q2-3hr - Venofer 400mg IV once - social work consult Time Spent With Patient Time: Total time spent is greater than 50% in coordination of care (as documented) at patient's floor/unit and/or counseling patient: Review of Systems 2 Constitutional: Constitutional: Denies chills, Denies fever(s) and Denies headache(s) Eyes: Eyes: Denies change in vision ENT: Denies dizziness and Denies headache(s) Cardiovascular: Cardiovascular: Denies chest pain, Denies palpitations and Denies dyspnea Respiratory: Respiratory: Denies cough and Denies dyspnea Gastrointestinal: Gastrointestinal: Denies nausea and Denies vomiting Neurologic: Denies dizziness and Denies headache(s) Endocrine: Endocrine: Denies palpitations Exam 2 Const: General: cooperative, comfortable and no acute distress O rientation/consciousness: patient oriented x3 Resp: Effort & Inspection: normal respiratory effort Auscultation: clear to auscultation bilaterally Cardio: Rate: regular rate GI: Inspection: non-distended GI Palp: No abdominal tenderness and Yes Soft to palpation Auscultation: normal bowel sounds : Other: fundus firm Skin: General skin exam: normal color Neuro: General: patient oriented x3 Extrem: General: normal to inspection Psych: Appearance: grossly normal Affect: normal affect Attitude: c ooperative
[2025-01-26 07:15] VITALS: BP 141/82; PULSE 78; RESP 16; TEMP 37.3; O2SAT 97
[2025-01-26] MEDS: IRON SUCROSE COMPLEX 400 MG in SODIUM CHLORIDE 0.9% IV 250 ML 108 MG IVPB (08:21)
[2025-01-26] MEDS: MULTIVIT/MIN/PREN/FOL AC/IRON TABLET 1 TAB PO (08:25)
[2025-01-26] MEDS: DOCUSATE SODIUM 100 MG CAPSULE PO ×2 (08:25→17:18)
[2025-01-26] MEDS: IBUPROFEN 600 MG TABLET PO ×2 (08:25→20:43)
--- NOTE | 2025-01-26 18:39 | PC.NURSE ---
1710. Introductions were made, then consulted with patient to assess needs related to . Discussed with mother her plans to feed her and the experience so far. This is moms 5th baby but she states she did not BF her first 4. She states she has been able to latch infant for 20-30 min independently so far and she supplements after per her preference. Mom states she has a pump at home, we measured her nipples with the measuring tool and she determined her size. Encouraged mother to express any questions or concerns she has regarding feedings. Advised her to call out for a latch check or if she needs assistance waking or positioning baby. Reviewed the blue feeding worksheet for required output and feeding at least 8-12 times every 24 hours. Resources provided for inpatient and outpatient services with the feeding sheet, mom/baby guide, and name/number written on the communication board. Mother voiced understanding of information and will call if there is a request for assistance. Reported to the Primary RN.
[2025-01-26 20:35] VITALS: BP 127/80; PULSE 74; RESP 16; TEMP 37.1; O2SAT 98
[2025-01-27 00:18] VITALS: BP 124/68; PULSE 69; RESP 18; TEMP 36.4; O2SAT 98
[2025-01-27] MEDS: ACETAMINOPHEN 325 MG TABLET 650 MG PO ×2 (00:24→14:23)
--- NOTE | 2025-01-27 07:08 | PM.OBDSVD ---
DS: Admitting Diagnosis Discharge Date 01/27/25 Admitting Diagnosis PPROM DS: Discharge Diagnosis Discharge Diagnosis (1) delivery: Code(s): O60.10X0 - labor with delivery, unspecified trimester, not applicable or unspecified Status: Acute OB - DS: Summary OB Procedures : Ultrasound OB Procedures Intrapartum: Spontaneous Vag Delivery OB Procedures: : None and Other (venofer IV) Peripartum Data Delivery Method: Natural Vaginal Laceration Description: None Episiotomy description: None complications: none 1: Gender: Female Disposition of : other (DCFS? grandparent?) Status at Discharge Functional status at discharge: independent ambulation Overall status at discharge: patient is back to baseline Time Spent with Patient Time attestation: Total time spent providing and/or coordinating discharge services: Exam Const: General: cooperative, healthy appearing, comfortable and no acute distress Orientation/consciousness: patient oriented x3 Resp: Effort & Inspection: normal respiratory effort Auscultation: clear to auscultation bilaterally Cardio: Rate: regular rate GI: Inspection: non-distended GI Palp: No abdominal tenderness and Yes Soft to palpation Auscultation: normal bowel sounds : Other: fundus firm Skin: General skin exam: normal color Neuro: General: patient oriented x3 Extrem: General: normal to inspection Psych: Appearance: grossly normal Affect: normal affect Attitude: cooperative DS: Data Data Completed and Pending Labs on day of discharge: Labs from last 24 hours 01/26/25 03:02 WBC 11.2 H RBC 3.42 L Hgb 8.9 L Hct 28.0 L MCV 81.9 MCH 26.0 MCHC 31.8 L RDW 12.8 Plt Count 209 MPV 11.2 H Discharge Plan Discharge Attending physician on discharge: Vivien Olivas Discharging Clinician: Vivien Olivas Patient Disposition: Home Activity: may shower and pelvic rest Diet: regular Patient Instructions: Vaginal Delivery (DC) Patient Language: Serbian Stand Alone Forms: General Discharge Information Follow-up/Referrals: Vivien Olivas MD [Physician] - 4 Weeks Discharge Medications: New acetaminophen 325 mg Tablet 650 mg PO Q6H PRN (Reason: Mild Pain (1-3) Or Headache) Qty: 60 0RF docusate sodium 100 mg Capsule 100 mg PO BID PRN (Reason: Constipation) Qty: 90 0RF ibuprofen 600 mg Tablet 600 mg PO Q6H PRN (Reason: Cramping) Qty: 40 0RF Continued Classic 28 mg iron- 800 mcg tablet 1 tablet PO DAILY calcium carbonate [Tums] 200 mg calcium (500 mg) tablet,chewable 200 mg PO BID Date of admission: 01/25/25 03:52 Primary Care Provider: UNKNOWN,DOCTOR Admitting Provider: Vivien Olivas Attending physician on admission: Vivien Olivas Condition: Stable
[2025-01-27] MEDS: IBUPROFEN 600 MG TABLET PO ×2 (07:48→14:23)
[2025-01-27] MEDS: MULTIVIT/MIN/PREN/FOL AC/IRON TABLET 1 TAB PO (07:48)
[2025-01-27] MEDS: DOCUSATE SODIUM 100 MG CAPSULE PO (07:48)
[2025-01-27] MEDS: POLYSACCHARIDE IRON COMPLEX 150 MG CAPSULE (07:50)
[2025-01-27] MEDS: MEASLES,MUMPS,RUBELLA VACCINE 0.5 ML VIAL SUB-Q (07:51)
[2025-01-27 08:10] VITALS: BP 119/81; PULSE 72; RESP 18; TEMP 37.4; O2SAT 98
--- NOTE | 2025-01-27 15:15 | PC.NURSE ---
1515: Spoke with Priyanka in Care Coordination who stated she spoke with DCFS and message was that the pt may go home with the baby and DCFS will contact the pt tomorrow.
--- NOTE | 2025-01-27 16:15 | PCCCNOTE ---
Care Coordination Note: Received consult that patient may have DCFS involvement and that her four other children are in custody. Pt. and FOB deny this. Report they have everything they need at home for baby girl. Have information to establish with [facility] services if needed. Have all necessary supplies at home including a basinnet, bottles, clothing, and diapers. Per RN and lock assembler pt. had limited care and history of DCFS involvement in the past. Pt. denies any current DCFS involvement to CC. Submitted DCFS report, intake ID [id number]. 14:00 Call again to [facility] hotline to determine status and whether pt. can discharge home with baby girl. Additional hotline intake ID [id number]. Received call from [facility] mortician investigator @ [phone]. She reports pt. is involved with DCFS however she has already had her child returned to her. She has been having drug tests every week and testing negative. Pt.'s other three children are in the custody of their respective fathers. Per worker pt.'s case is in process of closing as pt. has completed her care plan. RN aware that baby is cleared to discharge home with mom.
[2025-01-29 16:04] VITALS: BP 134/80; PULSE 98; RESP 18; TEMP 37; O2SAT 100
== END 2025-01-27 15:50 | disposition home or self-care (01) | DRG 560 ==
LOC: ANHLDR 04:53 → ANHOB2 14:00
PROVIDERS: Admitting Provider Obstetrics & Gynecology; Visit Provider Obstetrics & Gynecology
DX: O60.14X0 Preterm labor third trimester with preterm delivery third trimester, not applicable or unspecified (principal); O42.90 Premature rupture of membranes, unspecified as to length of time between rupture and onset of labor, unspecified weeks of gestation; Z3A.36 36 weeks gestation of pregnancy; Z37.0 Single live birth; Z87.891 Personal history of nicotine dependence; Q78.0 Osteogenesis imperfecta
CPT/HCPCS: 36415; 84112; 85025; 85027; 86593; 86703; 86762; 86850; 86900; 86901; 87340; 90710; A9270; G0432; J0290; J1756; J2590; J2795; J7050; J7120